=== PATIENT | male | born 1970 | race Caucasian/White ===

== ENCOUNTER 2025-05-13 13:26 | Inpatient (IN) | payer OTHER, SELFPAY ==
[2025-05-13] VITALS (38 sets, daily range): BP systolic 91–130; BP diastolic 42–87; PULSE 65; BMI 33.4; BMI 31.6
[2025-05-13] MEDS: SUBLIMAZE 100 MCG IV ×2 (11:18→11:33)
--- NOTE | 2025-05-13 11:18 | EDRN ---
100 mcg fentanyl IV push given at 111[address] per verbal order from Dr[address] Mott. Called pharmacy for fentanyl gtt at 1116.
[2025-05-13 11:25] LABS: Glucose - Point of Care 118 mg/dl (70-99)
[2025-05-13] MEDS: ATROPINE 0.1 MG/ML SYRINGE 0.5 MG IV (11:42)
[2025-05-13] MEDS: DILAUDID 1 MG IV (11:43)
--- NOTE | 2025-05-13 11:52 | CON.CAR ---
Consultation
Consultation Request
Date/Time Consultation Requested: 05/13/2025
Date/Time Consultation Performed: 05/13/2025
Requesting Provider: Dr. Mott
Performing Provider: Dr. Milian
Reason for Consultation: Syncope
Medical History
-
Chief Complaint: Syncope
History of Present Illness:
54-year-old male (known to Dr. Matamoros, His primary Industrial Hygiene Engineer) with paroxysmal atrial fibrillation (on Eliquis), hypertension, chronic continued cigarette use, end-stage renal disease on HD admitted with bradycardia with heart rates in the 30s;
patient had loss of consciousness at home while sitting in the chair (witnessed by ). EMS was called. Patient is currently obtunded and coming in and out of lucidness. He had some dyspnea at home, but denies any chest pain. He was recently
hospitalized a couple of weeks ago at [facility] and underwent foot surgery for osteomyelitis. The family also mentions that he currently has endocarditis, but is being managed with antibiotics only for now; he was told to follow-up
with his primary Industrial Hygiene Engineer as an outpatient.
Past Medical History
Past Medical History: HTN, Hypercholesterolemia and Other (Endocarditis, osteomyelitis)
Past Surgical History: Other (Foot surgery for osteomyelitis, testicular torsion as an adolescent)
Social History
Tobacco: Smoker
Alcohol: Daily
Drug: Former User (Marijuana and cocaine as a teenager)
Personal: ( at bedside)
Living: With Family
Family History
Family History: Unable to Obtain (Acuity)
Allergies / Home Medications
Allergy/AdvReac Type Severity Reaction Status Date / Time
No Known Allergies Allergy Verified 05/13/25 11:17
�Medication �Instructions �Recorded �Confirmed �Type
apixaban 5 mg tablet (Eliquis) 5 mg PO BID 05/13/25 05/13/25 History
atenolol 25 mg tablet 25 mg PO DAILY 05/13/25 05/13/25 History
daptomycin 350 mg intravenous 1,250 mg IV Q24H 05/13/25 05/13/25 History
solution
furosemide 20 mg tablet (Lasix) 20 mg PO DAILY 05/13/25 05/13/25 History
potassium chloride 20 mEq 20 meq PO DAILY 05/13/25 05/13/25 History
tablet,extended release
sevelamer carbonate 800 mg tablet 2,400 mg PO AC 05/13/25 05/13/25 History
vitamin B complex-folic acid 0.4 1 tab PO DAILY 05/13/25 05/13/25 History
mg tablet (B Complex 1 (with folic
acid))
Review of Systems
-
Unable to obtain full review of systems at this time due to: Acuity
History Source: Family, Ambulance Crew and Physician (ER Attending (and nurse))
Physical Exam
Vital Signs
Pulse Resp BP Pulse Ox
34 18 92/49 98
05/13/25 11:45 05/13/25 11:45 05/13/25 11:45 05/13/25 11:45
Physical Exam
General: Other (Somnolent, ill-appearing; arousable at times)
HEENT: Anicteric
Respiratory: Rhonchi (Mild bibasilar)
Cardiac: S1/S2 and Regular Rhythm (Bradycardic)
Breast: N/A
GI: Soft
Rectal: Deferred by Provider
Musculoskeletal: Edema (1-2+ with bilateral erythema)
Skin: Warm
Neuro: Other (Somnolent/lethargic, but arousable at times)
Psych: Confused
Impression / Plan
-
54-year-old male (known to Dr. Matamoros, His primary Industrial Hygiene Engineer) with paroxysmal atrial fibrillation (on Eliquis), hypertension, end-stage renal disease on HD, chronic continued cigarette use, and obesity admitted with bradycardia with heart rates in
the 30s; patient had loss of consciousness at home while sitting in the chair (witnessed by ). EMS was called. Patient is currently obtunded and coming in and out of lucidness. He had some dyspnea at home, but denies any chest pain. He was
recently hospitalized a couple of weeks ago at [facility] and underwent foot surgery for osteomyelitis. The family also mentions that he currently has endocarditis, but is being managed with antibiotics only for now; he was told to
follow-up with his primary Industrial Hygiene Engineer as an outpatient.
Symptomatic bradycardia:
- Patient with junctional, then idioventricular rhythm at 20-30 bpm; had loss of consciousness at home.
- Patient is currently hypotensive; labs are pending.
- Case discussed with Interventional Cardiology; patient will undergo urgent temporary pacemaker implantation now.
- Hospitalist team updated on patient's situation; admit to ICU under their service.
- Given his below comorbidities/infections, will be a suboptimal candidate for a permanent device; a Micra could be considered, if deemed appropriate--will have EP Cardiology assess case.
PAF (on Eliquis):
- Patient has missed Eliquis the past 2 nights, but took it this morning.
- Discontinue atenolol; lunchroom monitor in ICU.
Endocarditis:
- Patient did not undergo surgery; is currently on antibiotics.
- Will obtain echocardiogram after temporary pacemaker insertion.
Hypotension:
- Patient is currently hypotensive, possibly septic.
- Recommend ID consultation.
ESRD/HD:
- Nephrology consultation; patient had dialysis yesterday.
Foot osteomyelitis:
- Management as per primary team.
Chronic continued cigarette use:
- Counseled on the importance of smoking cessation.
Data Reviewed
-
EKG: Tracing Personally Visualized and interpreted (Idioventricular rhythm at 34 bpm with RBBB.)
Labs: Other (Pending)
Critical Care Time (in minutes): 79
[2025-05-13 11:54] LABS: Hematocrit 33.2 % (39.0-52.0); Hemoglobin 10.7 g/dL (13.0-18.0); Mean Corp Hgb Conc. 32.2 g/dL (33.0-37.0); Mean Corpuscular Volume 94.1 fL (80.0-94.0); Nucleated Red Blood Cells % 0 % (-); Platelet Count 212 10^3/uL (130-400); Red Cell Dist. Width 15.9 % (11.5-14.5)
--- NOTE | 2025-05-13 12:05 | ED.GENMED ---
History of Present Illness
General
Chief Complaint: Heart Rate Problem
Time Seen by Provider: 05/13/25 11:17
History of Present Illness
History of Present Illness:
54-year-old male with complex medical history including A-fib on Eliquis and atenolol, diabetes status post right foot surgery at [facility] about 3 weeks ago presenting to the emergency department for concern of bradycardia. Per medics, patient
was sitting in a chair, became unresponsive. When medics arrived, heart rate was in the 30s and patient was hypotensive. They gave 1 dose of atropine and started transcutaneous pacing with capture. On arrival to the hospital, family notes complex
recent hospitalization at [facility]. Patient received antibiotics, complicated by nephrotoxicity now requiring hemodialysis. Patient gets hemodialysis Monday, had dialysis yesterday. He is currently on daptomycin by
right chest PICC line. Additionally, they noted new diagnosis of endocarditis which was discovered about a week ago, told to follow-up with his sr. pricing analyst at [facility]. He has not yet followed up with his sr. pricing analyst. Patient is a full
code. Denies any known history of bradycardia. No additional history obtained at this time
Phy Exam
Physical Exam
Physical Exam:
General: Pale
HEENT: protecting airway
Neck: appears supple
CV: Bradycardic, irregular rhythm
Resp: No accessory muscle use, no increased work of breathing, lungs clear to auscultation bilaterally. Right PICC line
Abd: No distention
Extremities: Bandaged right foot with boot in place, status post right foot surgery
Neuro: alert, no focal neurologic deficit
: deferred
Rectal: deferred
Psych: Normal affect
Skin: Intact
Course
Orders/Labs/Results
Orders:
Orders
05/13/25
Electrocardiogram (*1) Stat
Other Reason for Exam: CP
Comment: DONE
Electrocardiogram (*1) Stat
Reason for Study: Chest Pain
Comment: DONE
05/13/25 11:18
Fentanyl Citrate/Pf [Sublimaze] 100 mcg IV NOW STA
05/13/25 11:32
Complete Blood Count/With Diff Urgent
Comprehensive Metabolic Panel Urgent
Fentanyl Citrate/Pf [Sublimaze] 100 mcg IV NOW STA
05/13/25 11:36
HYDROmorphone [Dilaudid] 1 mg .ROUTE .STK-MED ONE
05/13/25 11:40
Atropine Sulfate [Atropine 0.1 mg/ml Syringe] 1 mg .ROUTE .STK-MED ONE
NORepinephrine 4 MG/250 ML [Levophed] 4 mg in 250 ml .ROUTE .STK-MED
05/13/25 11:42
Atropine Sulfate [Atropine 0.1 mg/ml Syringe] 0.5 mg IV NOW STA
05/13/25 11:43
DOPamine 400 MG/D5W 250 ML [DOPamine] 400 mg in 250 ml .ROUTE .STK-MED
HYDROmorphone [Dilaudid] 1 mg IV NOW STA
05/13/25 11:44
Atropine Sulfate [Atropine 0.1 mg/ml Syringe] 1 mg .ROUTE .STK-MED ONE
05/13/25 11:51
Echo 2D MMode Color/Doppler Stat
Reason for Study: Syncope, bradycardia, endocarditis
05/13/25 12:00
DOBUTamine 1,000 MG/D5W 250 ML [Dobutrex] 1,000 mg in 250 ml IV PER PROTOCOL
Continuous dose in mcg/kg/min:: 5
DOPamine 400 MG/D5W 250 ML [DOPamine] 400 mg in 250 ml IV PER PROTOCOL
Initial dose in mcg/kg/min, then titrate:: 5
Titrate to keep:: Heart Rate
Keep Heart Rate (bpm) greater than:: 50
Titrate by mcg/kg/min:: 1-2 mcg/kg/min
Frequency of titrations (minutes):: 15
Maximum dose in ICU in mcg/kg/min:: 20
Maximum dose in IMU in mcg/kg/min:: 10
Begin to taper infusion when:: Remained at goal for 4hrs
Taper by mcg/kg/min:: 1-2 mcg/kg/min
Frequency of taper (minutes) if patient maintains goal:: 30
Taper to off?: Yes
If infusion off & no longer maintaining goal:: Contact Provider
05/13/25 12:02
Lactic Acid Q4H
Comment: CANCEL 2nd LACTIC ACID IF 1st LACTIC ACID IS LESS THAN 2
Blood Culture Q30M
HANY Source: Blood/Venous
Specimen Description:
05/13/25 12:30
Blood Culture Q30M
HANY Source: Blood/Venous
Specimen Description:
05/13/25 16:00
Lactic Acid Q4H
Comment: CANCEL 2nd LACTIC ACID IF 1st LACTIC ACID IS LESS THAN 2
Abnormal Lab Results
05/13/25 05/13/25
11:23 11:32
RBC 3.53 L 10^6/uL
(4.70-6.10)
Hgb 10.7 L g/dL
(13.0-18.0)
Hct 33.2 L %
(39.0-52.0)
MCV 94.1 H fL
(80.0-94.0)
MCHC 32.2 L g/dL
(33.0-37.0)
RDW 15.9 H %
(11.5-14.5)
MPV 11.5 H fL
(7.4-10.4)
Absolute Monos (auto) 1.0 H 10^3/uL
(0.1-0.6)
Lymphocytes % 16.8 L %
(20.5-51.1)
Monocytes % 11.1 H %
(1.7-9.3)
Sodium 128 L mmol/L
(135-145)
Potassium 6.4 H* mmol/L
(3.5-5.1)
Chloride 94 L mmol/L
(98-107)
BUN 44 H mg/dl
(9-20)
Creatinine 6.9 H* mg/dL
(0.7-1.3)
Glucose 113 H mg/dl
(70-99)
Alkaline Phosphatase 259 H U/L
(38-126)
Albumin 3.3 L g/dl
(3.5-5.0)
POC Glucose 118 H mg/dl
(70-99)
05/13/25 11:32
05/13/25 11:32
Vital Signs
Initial and Last Documented VS:
Initial Vital Signs
Pulse Resp BP Pulse Ox
33 17 109/44 96
05/13/25 11:19 05/13/25 11:19 05/13/25 11:19 05/13/25 11:19
Last Documented Vital Signs
Pulse Resp BP Pulse Ox
34 18 92/49 98
05/13/25 11:45 05/13/25 11:45 05/13/25 11:45 05/13/25 12:07
MDM/Problems Addressed
MDM/Problems Addressed:
54-year-old male with history of A-fib, diabetes, ESRD on hemodialysis presenting for concern of symptomatic bradycardia. Vital signs on arrival significant for bradycardia and hypotension.
On exam, patient is pale and unwell in appearance, chronically ill. Patient arrives with family, recent complex and complicated hospital admission at [facility] after right foot surgery, now on IV antibiotics by PICC line for suspected
osteomyelitis. In addition, patient found to have endocarditis. On arrival to the hospital, patient taken off transcutaneous pacing and EKG shows bradycardia, without clear evidence of third-degree heart block. However, patient was found to be
unresponsive prior to arrival with concern for symptomatic bradycardia. Blood pressure initially stable, so with supportive measures including IV fluids started. Will consult with cardiology, however patient very uncomfortable with transvenous
pacing so holding for now.
12:00 - Cardiology at bedside soon after patient's arrival. Blood pressure did begin to drop, so did try to transcutaneous pace, however patient very uncomfortable, difficult to capture. In discussion with cardiology, pacing turned off and we will
proceed with blood pressure support with dopamine. Patient at this time is not a candidate for pacemaker given active endocarditis, which could lead to pacemaker infection. Recommendation at this time is temporary transvenous pacemaker. Patient
will go to [facility]. Hospitalist made aware
*Pulse Oximetry
SaO2: 98
Oxygen Mode of Delivery: Room air
Patient hypoxic: no
*EKG
Interpreted by ED Provider?: Yes
EKG Intrepretation Date: 05/13/25
EKG Intrepretation Time: 12:20
Interpretation: abnormal
Comparison EKG: no comparison EKG present
Heart Rate: 34
Rate: bradycardiac
Rhythm: other (idioventricular rhythm)
[place]ster: right axis deviation
QRS Pattern: right bundle branch block
Ischemia: non-specific ST changes
*Critical Care Note
Total Time (30-74mins, 75-104mins- exclusive of procedures): 60
comment:
The high probability of a clinically significant, sudden or life threatening deterioration of the cardiac system(s), symptomatic bradycardia, required my full and direct attention, intervention and personal management. The aggregate critical care
time was 60 minutes. This time is in addition to time spent performing reported procedures but includes the following:
[x] Data Review and interpretation
[x] Patient assessment and monitoring of vital signs
[x] Documentation
[x] Medication orders and management
ED Attending Note
-
Portions of this chart may have been created with voice recognition software.� Occasional wrong word or��sound alike� substitutions may have occurred due to the inherent limitations of voice recognition software.
Discharge Plan
Departure
Patient Disposition: Admit
Date of Disposition: 05/13/25
Time of Disposition: 12:03
Presentation/result/management discussed w/ accepting MD/DO: Hospitalist
Patient with high blood pressure during this ER visit?: No
Condition: Critical
Discharge Problem:
Symptomatic bradycardia, Endocarditis, Hypotension
Prescriptions:
No Action
atenolol 25 mg Tablet
25 mg PO DAILY
furosemide [Lasix] 20 mg Tablet
20 mg PO DAILY
sevelamer carbonate 800 mg Tablet
2,400 mg PO AC
Eliquis 5 mg Tablet
5 mg PO BID
potassium chloride 20 mEq Tablet Extended Release
20 meq PO DAILY
daptomycin 350 mg Recon Soln
1,250 mg IV Q24H
Rx Instructions:
for 25 days starting 05/07/25
vitamin B complex-folic acid [B Complex 1 (with folic acid)] 0.4 mg Tablet
1 tab PO DAILY
Interventions
Interventions:
*Neglect/Abuse Screening Last Done: 05/13/25 11:30
Discharge Date and Time
Print Language: CHINESE
[2025-05-13 12:22] LABS: ALT (SGPT) 32 U/L (0-50); AST (SGOT) 31 U/L (17-59); Albumin 3.3 g/dl (3.5-5.0); Alkaline Phosphatase 259 U/L (38-126); Blood Urea Nitrogen 44 mg/dl (9-20); Calcium 8.4 mg/dl (8.4-10.2); Carbon Dioxide 24 mmol/L (22-30); Chloride 94 mmol/L (98-107); Estimated Creatinine Clearance 17 ml/min; Glucose 113 mg/dl (70-99); Potassium 6.4 mmol/L (3.5-5.1); Sodium 128 mmol/L (135-145); Total Protein 7.6 g/dl (6.3-8.2); eGFR 8.75
--- NOTE | 2025-05-13 12:38 | CON.INTV ---
Consultation
Consultation Request
Date/Time Consultation Requested: 05/13/2025
Date/Time Consultation Performed: 05/13/2024
Medical History
-
Chief Complaint: Loss of consciousness
History of Present Illness:
54-year-old male with PMH of paroxysmal atrial fibrillation on Eliquis, COPD, NAHUM is being admitted to the CV ICU for management of sinus bradycardia secondary to complete heart block s/p temporary Venous pacemaker implantation.
He was presented to ED today by EMS for sinus bradycardia. He felt lightheaded, had SOB while sitting on the chair and suddenly lost his consciousness. His called EMS and when they arrived his HR was 30s, hypotensive and received a dose of
atropine. He was started transcutaneous pacing with capture.
Recently he was hospitalized at [facility] on 04/17/2025 for right 3rd toe osteomyelitis. He was started on Piperacillin and Vancomycin. He developed broad skin allergic reaction secondary to piperacillin. Additionally his hospital
course was complicated by nephrotoxicity 2/2 vancomycin. Renal biopsy showed infectious glomerulonephritis. Since then he was on hemodialysis Mon/mon/Mon. At the hospital his blood culture was positive for ? infection and he had echo showing 7 mm
aortic valve vegetation with mild aortic insufficiency. He was diagnosed with endocarditis and PICC line was placed on the right arm for treatment with daptomycin and linezolid. Linezolid was discontinued recently and he is on daptomycin to be
continued for 42 days last day of antibiotics June 01, 2025.
At the ED he was hypotensive, heart rate 30's. Cardiology is on board. He had successful placement of a temporary venous pacemaker from the right internal jugular vein.
At the bedside he is complaining about feeling tired heart. His vitals HR 60, BP 117/61, 4L NC 94% O2. Dopamine drip as needed. He has normal bms. He urinates very little.
Past Medical History
Past Medical History: Arrhythmias, COPD and Other (Obstructive sleep apnea)
Past Surgical History: Other (Testis torsion when he was a teenager)
Social History
Tobacco: Former Smoker (Quit 04/17/2025)
Alcohol: Daily (2-3 beers a day)
Drug: Former User (Marijuana and cocaine as a teenager)
Personal:
Living: With Family
Family History
Family History: CAD (Father of heart disease early 70s)
Allergies / Home Medications
Allergies
Allergy/AdvReac Type Severity Reaction Status Date / Time
No Known Allergies Allergy Verified 05/13/25 11:17
Home Medications
�Medication �Instructions �Recorded �Confirmed �Last Taken �Type
apixaban 5 mg tablet (Eliquis) 5 mg PO BID 05/13/25 05/13/25 05/13/25 History
atenolol 25 mg tablet 25 mg PO DAILY 05/13/25 05/13/25 Unknown History
daptomycin 350 mg intravenous 1,250 mg IV Q24H 05/13/25 05/13/25 05/12/25 History
solution
furosemide 20 mg tablet (Lasix) 20 mg PO DAILY 05/13/25 05/13/25 Unknown History
potassium chloride 20 mEq 20 meq PO DAILY 05/13/25 05/13/25 Unknown History
tablet,extended release
sevelamer carbonate 800 mg tablet 2,400 mg PO AC 05/13/25 05/13/25 Unknown History
vitamin B complex-folic acid 0.4 1 tab PO DAILY 05/13/25 05/13/25 Unknown History
mg tablet (B Complex 1 (with folic
acid))
Review of Systems
-
History Source: Patient
Constitutional: Fatigue
EENT: No Symptoms
Respiratory: No Symptoms
Cardiac: No Symptoms
Abdomen/GI: No Symptoms
: No Symptoms
Musculoskeletal: No Symptoms
Skin: Rash (Bilateral lower legs, erythema and bluish discoloration)
Neuro: No Symptoms
Endocrine: No Symptoms
Vitals / Labs / Diagnostic Testing
Vital Signs
Pulse Resp BP Pulse Ox
34 18 92/49 98
05/13/25 11:45 05/13/25 11:45 05/13/25 11:45 05/13/25 12:07
Lab Data
05/13/25 11:32
Diagnostic Testing:
Physical Exam
-
HEENT: Normocephalic
Cardiovascular: S1/S2, Regular Rhythm and Other (Temporary pacemaker)
Respiratory: Clear
GI: Soft, Non Distended and Non Tender
Neurology: AO x 3 and No Motor Deficits
Skin: Warm and Dry
General: Comfortable
Assessment
-
Impression
54-year-old male with PMH of paroxysmal atrial fibrillation on Eliquis, COPD, NAHUM is being admitted to the CV ICU for management of sinus bradycardia secondary to complete heart block s/p temporary Venous pacemaker implantation.
Recently he was hospitalized at [facility] on 04/17/2025 for right 3rd toe osteomyelitis. He developed broad skin allergic reaction secondary to piperacillin. Additionally his hospital course was complicated by nephrotoxicity 2/2
vancomycin. Renal biopsy showed infectious glomerulonephritis. Since then he was on hemodialysis Mon/mon/Mon. He was diagnosed with endocarditis and PICC line was placed on the right arm for treatment with daptomycin and linezolid. He is on
daptomycin to be continued for 42 days last day of antibiotics June 01, 2025.
Plan
Symptomatic bradycardia 2/2 complete heart block
- Loss of consciousness at home, HR 30s
- Cardiology on board
- EKG : junctional then idioventricular rhythm at 20 to 30 bpm
- On 05/13/2025 s/p temporary venous pacemaker
- Dopamine ggt prn
- dc atenolol
- check tsh, bmp
Paroxysmal atrial fibrillation
- hold Eliquis for possible cardiac surgery
- Xarelto was switched to Eliquis due to SANDY
- Last dose of Eliquis was this morning
Endocarditis
- linezolid was discontinued, continue daptomycin
- Hold on permanent pacemaker placement due to risk of pacemaker infection
- Obtain echo
- blood cx - pending
- ID on board, input appreciated
Hypotension
- Hold atenolol, furosemide
- Monitor BP
Hyperkalemia
- He has been taking 20 mg potassium supplement daily
- K 6.4
- He was given insulin regular 5 U, IV calcium gluconate, dextrose 50%water, Lokelma
- Follow BMP
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
- Recent renal biopsy, infectious glomerulonephritis
- Hemodialysis Mon/mon/Mon, last one 05/12/2025
- Nephrology on board
- 48oz fluid restriction, K and Na restriction on HD
- d/c lasix
Foot osteomyelitis
- Continue antibiotics
- Wound consult
Obstructive sleep apnea
- Uses CPAP at night
COPD
- Quit smoking since last hospitalization
- Continue home inhalers
Alcohol use disorder
- 2-3 beers daily
Full code
DVT prophylaxis: SQ heparin (Hold Eliquis)
--- NOTE | 2025-05-13 12:42 | HPS.HSE ---
Family Physician
-
Family Physician:
Chief Complaint
-
syncope
History of Present Illness
54-year-old male past medical history of paroxysmal atrial fibrillation previously on Xarelto switched to Eliquis, COPD, presenting with unresponsive episode and gasping shortly prior to arrival. When EMS arrived he was noted to be bradycardic in
the 30s and was shocked by EMS. He was being paced by medics.
He was recently hospitalized at [facility] and discharged within the past week. He was originally admitted after he presented from a podiatry office for infection of his right toe which was treated with multiple antibiotics. He
underwent debridement of his toe with podiatry. He was started on vancomycin and developed acute kidney injury requiring dialysis, which he receives Monday, Monday, Monday. He underwent renal biopsy which showed infectious glomerulonephritis
thought to be secondary to vancomycin. He was treated with cellulitis and underwent skin biopsy of skin lesions which was unrevealing. He had echocardiogram which showed 7 mm aortic valve vegetation with mild aortic insufficiency. His blood
cultures were negative. He was seen by cardiology and there was concern for endocarditis. MRI brain did not show any septic emboli. He was treated with daptomycin and linezolid to be continued for 42 days total. He will complete antibiotics on
June 01, 2025.
Due to worsening kidney function is Xarelto switched to Eliquis and digoxin was held. Atenolol was decreased to 25 mg. Outpatient follow-up with his carpenter bridge Dr. Bird was recommended.
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 Outpatient follow-up with vascular was recommended.
Outpatient follow-up with podiatry was recommended.
After his recent discharge he had been afebrile but had been fatigued. He currently denies any symptoms such as chest pain shortness of breath or dizziness although he feels tired. No fever vomiting or diarrhea.
Used to use drugs when he was younger. Recently quit alcohol and smoking after recent admission.
Medical History
Past Medical History
Past Medical History: Reports Other (paroxysmal atrial fibrillation previously on Xarelto switched to Eliquis, COPD,)
Past Surgical History: Reports None
Social History
Tobacco: Former Smoker
Alcohol: Occasional
Drug: None
Family History
Family History: Not pertinent
Allergies / Home Medications
Allergies reflects when Allergies were last updated in [facility].
Home Medications with original date entered in [facility]
Allergy/Medication List:
Allergies
Allergy/AdvReac Type Severity Reaction Status Date / Time
No Known Allergies Allergy Verified 05/13/25 11:17
Home Medications
apixaban 5 mg tablet (Eliquis) 5 mg PO BID 05/13/25
atenolol 25 mg tablet 25 mg PO DAILY 05/13/25
daptomycin 350 mg intravenous solution 1,250 mg IV Q24H 05/13/25
furosemide 20 mg tablet (Lasix) 20 mg PO DAILY 05/13/25
potassium chloride 20 mEq tablet,extended release 20 meq PO DAILY 05/13/25
sevelamer carbonate 800 mg tablet 2,400 mg PO AC 05/13/25
vitamin B complex-folic acid 0.4 mg tablet (B Complex 1 (with folic acid)) 1 tab PO DAILY 05/13/25
Review of Systems
-
History Source: Patient
A 12 point ROS was completed and negative except as noted: Yes
Constitutional: Reports No Symptoms
EENT: Reports No Symptoms
Respiratory: Reports No Symptoms
Cardiac: Reports No Symptoms
Abdomen/GI: Reports No Symptoms
: Reports No Symptoms
Musculoskeletal: Reports No Symptoms
Skin: Reports No Symptoms
Neurological: Reports No Symptoms
Endocrine: Reports No Symptoms
Hematologic/Lymphatic: Reports No Symptoms
Psych: Reports No Symptoms
Physical Exam
Vital Signs
Vital Signs
Pulse Resp BP Pulse Ox
34 18 92/49 98
05/13/25 11:45 05/13/25 11:45 05/13/25 11:45 05/13/25 12:07
Physical Exam
General: Well Developed, Well Nourished and No Apparent Distress
HEENT: NormoCephalic, Moist mucous membranes and Atraumatic
Respiratory: Clear
Cardiac: S1/S2 and Regular Rhythm; No Murmur or Rub
GI: Soft, Non Tender, Non Distended and Normal Bowel Sounds; No Organomegaly
Rectal: Deferred by Provider
Musculoskeletal: No Clubbing, No Cyanosis and No Edema
Skin: No Rash
Neuro: Nonfocal/grossly intact
Laboratory Results
-
05/13/25 11:32
Laboratory Results
Lactic Acid 2.2 mmol/L (0.7-2.0) H 05/13/25 12:02
Total Bilirubin 1.2 mg/dl (0.2-1.3) 05/13/25 11:32
AST 31 U/L (17-59) 05/13/25 11:32
ALT 32 U/L (0-50) 05/13/25 11:32
Alkaline Phosphatase 259 U/L (38-126) H 05/13/25 11:32
Data Reviewed
-
Lab Data: Labs Reviewed by me
Old Records: Reviewed
Impression/Plan
-
IMPRESSION:
PLAN:
# Syncopal episode concerning for unstable symptomatic bradycardia/heart block secondary to ongoing endocarditis
-Blood pressure 90s, heart rate 30s currently
- EKG shows junctional bradycardia, second shows idioventricular rhythm, right bundle branch block,
- Patient to undergo temporary pacemaker placement with echocardiogram in [facility]
-Atropine given here
-Patient on dopamine drip
- Temporary pacemaker to be placed now, echocardiogram in [facility]
- Check blood cultures
-Continue linezolid, daptomycin until 06/01
-Hold atenolol, Lasix
- Cardiology following
- ID consulteded
# Possible sepsis (hypotension, lactic acidosis) secondary to endocarditis
# Recently noted aortic valve vegetation
- Blood cultures pending
-Lactate 2.2
- Check lactate
# Hyperkalemia secondary to SANDY/potassium supplement
- Insulin dextrose
- Calcium gluconate
-Hold potassium
- Recheck BMP in 4 hours
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
- Dialysis dependent, received dialysis yesterday
- Due for dialysis tomorrow
-Hold Lasix
-Continue sevelamer
- Nephrology consulted
Recent right foot osteomyelitis s/p debridement
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
Paroxysmal atrial fibrillation
- Hold Eliquis
COPD
- Continue Anoro Ellipta
Chronic anemia
- Hemoglobin 10.7
Recent smoker
Hx of testicular torsion s/p surgery
Full code
DVT prophylaxis�heparin
N.p.o.
--- NOTE | 2025-05-13 13:12 | PTCARENOTE ---
Received report from Efe RN at 1312, patient transferred directly into room 2263 via hospital bed accompanied by RN. Nursing assessment completed and as documented. Patient s/p transvenous temporary pacemaker via R IJ, confirmed settings at this
time - see worklist, V paced on monitor in 60's. Labs drawn and medications given as per order, see JUL. R IJ cordis present with KVO infusing at 10ml/hr, dressing CDI. Patient with dopamine infusing via L FA PIV for HR - see worklist for charting.
RUE PICC line present from previous hospital, VAT notified at this time, +BR. Right chest wall HD cath present. Patient with wounds to BLLE and B/L feet - WOC consulted and at bedside, orders placed for wound care. Scabbed over rash noted to BLLE,
BLUE, and back side - see worklist. ECHO done at bedside. Nephrology at bedside, x1 dose lokelma ordered and HD ordered for today. Safety Sealer at bedside with residents, additional labs and CXR ordered. Patient given ice chips and tolerated well,
repositioned for comfort, VSS, call velázquez within reach, care ongoing. All questions answered for patient and family at bedside.
--- NOTE | 2025-05-13 13:15 | ITS.CL.PN ---
[employer] - Procedure Note
Procedure
Procedure Note:
CARDIAC CATHETERIZATION REPORT
Date of Procedure: 05/13/2025
Referring: Dr. Sen Milian MD
Indication: bradycardia secondary to complete heart block, hypotension
PROCEDURE: temporary venous pacemaker insertion
ACCESS: 6F right internal jugular vein
CATHETERS: 6F pacing wire
MODERATE SEDATION: 25 minutes of moderate sedation was utilized. An independent medical care administrator was present to assist with and help manage the patient's level of consciousness and physiologic status.
PROCEDURE DESCRIPTION: Ultrasound-guided vascular access was obtained in the right internal jugular vein and a 6 Kiswahili sheath placed. Under fluoroscopic guidance, a 6 Kiswahili pacing wire was advanced to the RV apical septum with location confirmed
on YUAN projection. Pacing was initiated with capture threshold down to 1 mA. The pacemaker was set to an output of 10 mA and rate of 60 bpm and secured in place with suture and Tegaderm. Patient tolerated the procedure well and was taken to the
CVICU. Of note, the patient's potassium resulted at 6.4 immediately prior to the procedure so 1 g of calcium gluconate was given.
CONCLUSION: Successful placement of a temporary venous pacemaker from the right internal jugular vein.
Signed: Omero Parra MD, PhD
[2025-05-13 13:43] LABS: Glucose - Point of Care 117 mg/dl (70-99)
[2025-05-13] MEDS: DOBUTREX 250 IV (14:15)
[2025-05-13 14:18] LABS: Blood Urea Nitrogen 47 mg/dl (9-20); Calcium 8.5 mg/dl (8.4-10.2); Carbon Dioxide 24 mmol/L (22-30); Chloride 96 mmol/L (98-107); Estimated Creatinine Clearance 17 ml/min; Glucose 121 mg/dl (70-99); Potassium 6.6 mmol/L (3.5-5.1); Sodium 128 mmol/L (135-145); eGFR 8.75
[2025-05-13] MEDS: DEXTROSE 50% SYRINGE 25 GRAMS IV (14:20)
[2025-05-13] MEDS: NOVOLIN R 5 UNITS IV (14:20)
--- NOTE | 2025-05-13 15:12 | W.CON.NEPH ---
Consultation
-
Date/Time Consultation Requested: 05/13/2025 2 PM
Date/Time Consultation Performed: 05/13/2025 3 PM
Requesting Provider: Dr. Alvarado
Performing Provider: Dr. Wheat
Reason for Consultation: SANDY/HD
Medical History
-
Chief Complaint: Bradycardia
History of Present Illness:
This is a 54-year-old gentleman who has atrial fibrillation long-term previously treated with Xarelto and atenolol. He also has COPD due to longstanding smoking but does not require inhaler therapy. He was at [facility] about 3 weeks
ago for infection of his right third toe. He says that they managed to save the toe but in treating the infection with vancomycin he had developed a reaction with diffuse hives. He then developed kidney failure. He underwent kidney biopsy which
was reported as glomerular and tubular damage from vancomycin and infectious glomerulonephritis. He was started on dialysis via a right tunneled IJ catheter. He received 2 treatments in the hospital and was discharged to [facility]
[place] for outpatient dialysis. He was there on Monday and Monday. He says that his dialysis sessions were without incident. He was receiving daptomycin at home postdialysis. He tried to go to work today but developed an
unresponsive episode. EMS found him bradycardic in the 30s. He was brought to emergency room. A temporary pacemaker was placed today.
Evaluation at [place] also discovered a aortic valve vegetations 7 mm on echocardiogram. Blood cultures were negative however.
Past Medical History
Atrial fibrillation
Hypertension
Acute kidney injury needing dialysis
Right third toe surgery
COPD
Social History
Tobacco: Former Smoker
Alcohol: None
Family History
Family History: Not Pertinent
Allergies / Home Medications
Allergy/AdvReac Type Severity Reaction Status Date / Time
No Known Allergies Allergy Verified 05/13/25 11:17
�Medication �Instructions �Recorded �Confirmed �Type
apixaban 5 mg tablet (Eliquis) 5 mg PO BID Blood Clot 05/13/25 05/13/25 History
Prevention/Tx
atenolol 25 mg tablet 25 mg PO DAILY Blood Pressure 05/13/25 05/13/25 History
daptomycin 350 mg intravenous 1,250 mg IV Q24H Infection 05/13/25 05/13/25 History
solution
furosemide 20 mg tablet (Lasix) 20 mg PO DAILY Fluid 05/13/25 05/13/25 History
Retention/Swelling
potassium chloride 20 mEq 20 meq PO DAILY Electrolyte 05/13/25 05/13/25 History
tablet,extended release Repletion
sevelamer carbonate 800 mg tablet 2,400 mg PO AC Kidney Disease 05/13/25 05/13/25 History
vitamin B complex-folic acid 0.4 1 tab PO DAILY Supplement 05/13/25 05/13/25 History
mg tablet (B Complex 1 (with folic
acid))
Review of Systems
-
Malaise
No chest pain or shortness of breath
All other systems: Negative unless noted
Physical Exam
Vital Signs
Vital Signs
Pulse Resp BP Pulse Ox
90 23 110/52 100
05/13/25 14:45 05/13/25 14:45 05/13/25 14:30 05/13/25 14:45
Lab Results
WBC 8.7 10^3/uL (4.8-10.8) 05/13/25 11:32
RBC 3.53 10^6/uL (4.70-6.10) L 05/13/25 11:32
Hgb 10.7 g/dL (13.0-18.0) L 05/13/25 11:32
Hct 33.2 % (39.0-52.0) L 05/13/25 11:32
Plt Count 212 10^3/uL (130-400) 05/13/25 11:32
eGFR 8.75 05/13/25 13:49
Albumin 3.3 g/dl (3.5-5.0) L 05/13/25 11:32
Physical Exam
Patient is awake alert oriented and in no distress. Mood and affect were pleasant, insight and judgment were good. Pupils are equal round and reactive to light, extraocular movements are intact, sclera were anicteric. Hearing was normal, ears and
nose are intact. Oropharynx was clear. Neck was supple with trachea midline and no thyromegaly. Heart was regular rate and rhythm without rubs. Lower extremities without edema. Lungs were clear to auscultation bilaterally and with normal
excursion. Abdomen was soft, nontender, with normal active bowel sounds, and no hepatosplenomegaly. Skin was without rash and with normal turgor.
Data Reviewed
-
Medical Tests (Nuc Med, Echo etc): Image Personally Visualized and interpreted (EKG 05/13/2025 by my reading idioventricular rhythm)
Labs: Labs Reviewed by me
Old Records: Requested
Assessment/Plan
-
Assessment
Aortic valve vegetation
Bradycardia status post pacemaker
SANDY on dialysis
Postinfectious glomerulonephritis
Hyperkalemia
Hyponatremia
Anemia
Plan
short dialysis treatment today
Lokelma course
Regular dialysis tomorrow
Discontinue dopamine
Continue daptomycin
Obtain records from [facility]
Discussed with patient and
[2025-05-13] MEDS: LOKELMA 10 GRAM PO ×2 (15:24→19:01)
[2025-05-13 15:40] LABS: Glucose - Point of Care 120 mg/dl (70-99)
[2025-05-13 15:54] LABS: APTT 41.0 Sec (23.4-35.0); INR 2.30; PT 25.5 Sec (11.4-14.6)
[2025-05-13 16:29] LABS: Glucose - Point of Care 96 mg/dl (70-99)
--- NOTE | 2025-05-13 16:30 | WOUNDNOTE ---
POSTERIOR LEGS AND HEELS
--- NOTE | 2025-05-13 16:31 | WOUNDNOTE ---
L 2ND TOE
--- NOTE | 2025-05-13 16:32 | WOUNDNOTE ---
R 3RD TOE DORSAL
--- NOTE | 2025-05-13 16:33 | WOUNDNOTE ---
R 3RD TOE WEB
--- NOTE | 2025-05-13 16:40 | CM ---
spoke to pt in room, he is prev recovering from a recent hospitalization at [facility] for R-foot osteomyelitis- he went home on IV antibx- Daptomycin/[facility] and a boot on the right foot. He had SANDY from [facility] and is now req
RADHA- Matt/Katie garcia- MWF @ 530 am. , his drives him. He lives with his in a 2 story home with 1 step to enter. he has a walker at home he uses and a cane if needed. plan is to return to prev services when medically stable. cm to f/u
with HD and Infusion co tomorrow for dc planning needs.
--- NOTE | 2025-05-13 16:43 | WOUNDNOTE ---
WON RN note: Patient admitted with symptomatic bradycardia.
See H&P for complete history.
PMH: 54-year-old male past medical history of paroxysmal atrial fibrillation previously on Xarelto switched to Eliquis, COPD, presenting with unresponsive episode and gasping shortly prior to arrival. When EMS arrived he was noted to be bradycardic
in the 30s and was shocked by EMS. He was being paced by medics.
He was recently hospitalized at [facility] and discharged within the past week. He was originally admitted after he presented from a podiatry office for infection of his right toe which was treated with multiple antibiotics. He
underwent debridement of his toe with podiatry. He was started on vancomycin and developed acute kidney injury requiring dialysis, which he receives Monday, Monday, Monday.
Wound Location and type/assessment: Patient admitted with: Healed surgical site to R 3rd toe, dry eschar intact, no drainage. R plantar foot with healing ulcer from infection, reports Dora at bedside. Showed this technical publications writer pictures of R plantar
foot when it started and is much improved. Reviewed current treatment of R foot with as ordered by Range Examiner Dr. Hardy. Using Darco shoe to R foot. Patient reports he was at Podiatrists office yesterday and had stitches removed, follow up is
in 2 wks. Legs with residual scabs, swelling and redness from reported Vanco reaction, no drainage. Heels are intact. L 2nd toe with curled in toe nail, dark brown, no drainage. Will have Range Examiner look at it at next visit reports . Gluteal
cleft with mild MASD, sacrum intact. Resolving rash on buttocks.
Appetite: NPO.
Pressure redistribution devices in place: On air mattress, turns self, can be on Accumax. Ad norman with Darco shoe.
Plan: Betadine and dry dressing applied to R foot wounds. Mineral oil and miconazole ordered.
Will confirm orders with hospitalist. Updated nurse Avtar who will finish wrapping dressing after I&D assess,
Updated care plan and will follow as needed.
Note to case management of equipment requested for discharge: TBD
Recommend follow up with Range Examiner.
[2025-05-13 16:55] LABS: TSH 6.13 uIU/ml (0.47-4.68)
[2025-05-13] MEDS: RENVELA PO (17:14)
--- NOTE | 2025-05-13 17:22 | CON.ID ---
Consultation
-
Date/Time Consultation Requested: May 13, 2025 1329
Date/Time Consultation Performed: May 13, 2025 1725
Requesting Provider: Dr. Mykel Toribio
Performing Provider: Dr. Madelyn Lou
Reason for Consultation: Endocarditis on daptomycin, SANDY
Chief Complaint / Past History
Chief Complaint
Loss of consciousness
History of Present Illness
History obtained from the patient as well as from his at bedside. 54-year-old male with history of hypertension, COPD, paroxysmal atrial fibrillation, recent complicated hospital stay at [place] (see below) who presented to the hospital
today due to abrupt loss of consciousness. Per , patient was watching TV when he suddenly became unresponsive and very rigid. He would regain consciousness and again became unresponsive and tense. This happened about 3 times. In the ER
patient noted to be in complete AV block with pulse in the 30s. He underwent emergent venous temporary pacer placement. TTE showed abnormal aortic valve with moderate aortic regurgitation. He is now alert and oriented x 3. No recent fevers or
chills. No diarrhea. No cough. No chest pain.
Of note the patient with chronic callus at the bottom of his right foot for which he follows with podiatry. He underwent several callus debridement. The wound extended to right third toe web. The right third toe then turned white. He was placed
on several courses of antibiotics including cephalexin then amoxicillin which he tolerated. The toe and callus wounds were healing. Then on April 18, the right third toe abruptly turned dark blue/purplish in color. He was admitted to [facility] April 19. Imaging showed osteomyelitis. On April 21 around 3 PM, he was taken to the OR status post right third toe partial bone resection. Postop he was started on vancomycin and Zosyn. The next day he develop
vasculitic rash initially on his thigh then spread all over his body. Few of them turned blisterlike. ANCA negative. Skin biopsy reportedly negative. Patient also noted to have rising creatinine. Both the vancomycin and Zosyn were discontinued.
Renal biopsy showed 'infectious glomerulonephritis'. Patient became dialysis dependent. Infectious disease ordered TTE to look for possible endocarditis with emboli to the kidneys. TTE showed 7 mm aortic valve vegetation with mild aortic
insufficiency. Per patient note BRENDAN was performed. Blood cultures were negative. Bartonella and Coxiella serologies negative. The toe culture grew Corynebacterium. Infectious placed him on IV daptomycin to complete 6-week course through May
2024. Prior to discharge patient was started on oral linezolid, he was discharged to home May 08. While at home he developed itching and hives. His called infectious disease who recommended discontinue the linezolid and the rash
resolved.
Past History
Additional Past Medical History:
COPD
Hypertension
R 3rd toe osteomyelitis status post partial bone resection at [place] 04/21/25, cx Corynebacterium. On Daptomycin till 06/01/24
AV vegetation by TTE,, neg blood cx's at [place], on daptomycin till 06/01/24
SANDY-> ESRD on HD since 03/2025 at [place]. Renal bx 'infectious glomerulonephritis'. Possibly due to Vancomycin.
Paroxysmal atrial fibrillation
Dyslipidemia
Venous insufficiency
Sleep apnea
Testicular torsion repair as a teenager
Allergy History:
No Known Allergies Allergy (Verified 05/13/25 11:17)
Medications Reviewed: Yes
Current Antibiotics:
Daptomycin
Social History
Tobacco: Smoker (Quit 04/19/25)
Alcohol: Daily
Drug: None
Personal:
Living: With Family
Family History
Family History: Not Pertinent
Review of Systems
Review of Systems
General: Negative Fever, Chills or Change in Appetite
HEENT: Negative Stiff Neck, Sinus Problems, Headache or Pharyngitis
Cardiovascular: Negative Chest Pain or Dyspnea
Respiratory: Negative Dyspnea or Cough
Gasteroenterology: Negative Nausea, Vomiting or Diarrhea
Genital / Urological: Negative Dysuria or Flank Pain
Endocrine: Weakness
Neurological: Negative Dizziness
All systems: All other systems were reviewed and were negative
Vital Signs
Temp Pulse Resp BP Pulse Ox
97.8 F 60 18 118/73 93
05/13/25 15:48 05/13/25 17:15 05/13/25 17:15 05/13/25 17:15 05/13/25 17:00
Physical Exam
Physical Exam
Constitutional: No Acute Distress, Comfortable and Non-toxic
Head: Other (No sinsus tenderness)
Eyes: No Conjunctival Hemorrhage and Sclera Anicteric
Cardiovascular: Regular Rate and S1/S2
Pulmonary: Clear
Gastrointestinal: Soft, Non Tender, Non Distended and Normal Bowel Sounds
Genito-Urinary: Negative CVA Tenderness
Extremities: Venous Insufficiency (BLE); Negative Edema
Skin: Dry (Extremely dry hyperkeratosis of bilateral feet to moulton)
Wound: Other (Right foot plantar 3rd metatarsal callus with small cental wound clean pink granulation tissue; R 3rd toe with iodine painted, without deep wound)
Neurological: AO x 3
Lines: HD Cath (RCW no erythema)
Lab / Diagnostic Study Results
05/13/25 11:32
05/13/25 20:00
Abs Immat Gran (auto) 0.0 10^3/uL (0-0.05) 05/13/25 11:32
Absolute Neuts (auto) 6.1 10^3/uL (1.4-6.5) 05/13/25 11:32
Absolute Lymphs (auto) 1.5 10^3/uL (1.2-3.4) 05/13/25 11:32
Absolute Monos (auto) 1.0 10^3/uL (0.1-0.6) H 05/13/25 11:32
Absolute Basos (auto) 0.1 10^3/uL (0-0.2) 05/13/25 11:32
Immature Gran % 0.5 % (0-0.5) 05/13/25 11:32
Neutrophils % 69.7 % (42.2-75.2) 05/13/25 11:32
Lymphocytes % 16.8 % (20.5-51.1) L 05/13/25 11:32
Monocytes % 11.1 % (1.7-9.3) H 05/13/25 11:32
Eosinophils % 1.3 % (0-6) 05/13/25 11:32
Basophils % 0.6 % (0-2) 05/13/25 11:32
PT 25.5 Sec (11.4-14.6) H 05/13/25 15:33
PT Cancelled 05/13/25 15:33
INR 2.30 05/13/25 15:33
INR Cancelled 05/13/25 15:33
Lactic Acid Cancelled 05/13/25 19:29
Microbiology Results
Micro:
05/13/25 12:11 Blood Culture - Pending
Blood/Venous
05/13/25 12:02 Blood Culture - Pending
Blood/Venous
Assessment / Plan
# Complete AVB/bradycardia s/p temporary venous pacer placement 05/13/25
# Recent AV vegetation by TTE with mild AI neg blood cx's at [place], on daptomycin till 06/01/24
TTE here moderate aortic regurgitation
# Recent R 3rd toe osteomyelitis status post partial bone resection at [place] 04/21/25, cx Corynebacterium. On Daptomycin till 06/01/24
# SANDY-> ESRD on HD since 03/2025 at [place]. Renal bx 'infectious glomerulonephritis'.
Possibly due to Vancomycin +/- Zosyn vs embolic
#Hyperkalemia - requiring emergent HD today
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
- Follow blood cx's
- Recommend BRENDAN to confirm AV vegetation, valve function
- Continue Daptomycin 1250 mg q48 till 06/01/24.
Will give supplement dose after emergent HD today.
Check CK in am while on daptomycin.
# Other PMHX
COPD
Hypertension
Paroxysmal atrial fibrillation
Dyslipidemia
Superior mesenteric artery stenosis
Venous insufficiency
Sleep apnea
Testicular torsion repair as a teenager
--- NOTE | 2025-05-13 17:39 | W.PN.NEPH.HD ---
Assessment
-
Pt seen on HD. no complaints. VSS, access ok
Progress Note - Hemodialysis
-
Date of Service: May 13, 2025
Duration: 2 hours
Potassium Bath: 2
Calcium Bath: 2.5
Opti-Dialyzer: 160
Ultrafiltration: Other (1kg)
Blood Flow: 400
Dialysate Flow: 600
Heparin: 0
EPO: 0
[2025-05-13] MEDS: HEPARIN 4300 UNITS INTRACATH (18:29)
[2025-05-13 18:34] LABS: Glucose - Point of Care 88 mg/dl (70-99)
[2025-05-13] MEDS: CUBICIN 25 MG IV (19:01)
--- NOTE | 2025-05-13 20:00 | PTCARENOTE ---
Assumed care of patient at 1900. Patient found resting in bed at time of assessment. Patient is Aox4, follows commands appropriately, moves all extremities. Lung sounds are diminished in the bases, saO2 96% on RA. Heart sounds are audible, patient
is 100% vpaced on the monitor, there is a transvenous PM with VVI settings. Patient has normal palpable radial pulses and pedals are present via doppler. +2 BLE edema. Fingernails are dusky in appearance. Patient has active BS reports BM this AM and
is oliguric/anuric HD player. Patient has R IJ corids, R arm PICC, L AC PIV and L FA PIV. Patient has MASD of gluteal cleft treated with antifungal powder. Scabbing of BLE as remnants of vanco reaction. R foot wound from previous I+D site with 4x4
gauze and kerlix dressing. Patient reports difficulty sleeping melatonin added. VSS. Call velázquez within reach.
[2025-05-13] MEDS: DESENEX/MITRAZOL/ZEASORB 1 APPLIC TOPICAL (20:26)
[2025-05-13] MEDS: HEPARIN 5000 UNITS SC (20:27)
[2025-05-13 20:45] LABS: Glucose - Point of Care 94 mg/dl (70-99)
[2025-05-13] MEDS: MELATONIN 5 MG PO (22:17)
[2025-05-13 23:28] LABS: Blood Urea Nitrogen 34 mg/dl (9-20); Calcium 8.8 mg/dl (8.4-10.2); Carbon Dioxide 25 mmol/L (22-30); Chloride 96 mmol/L (98-107); Estimated Creatinine Clearance 21 ml/min; Glucose 89 mg/dl (70-99); Potassium 5.0 mmol/L (3.5-5.1); Sodium 130 mmol/L (135-145); eGFR 11.49
[2025-05-14] VITALS (66 sets, daily range): BP systolic 88–127; BP diastolic 44–93; BMI 31.2
--- NOTE | 2025-05-14 | PTCARENOTE ---
Patient reassessed. Remains 100% v paced. Patient c/o pain in buttocks 2/2 sitting in bed. Sacral foam and air cushion applied. Repositioning patient as appropriate. F/u lab work stable. Call velázquez within reach.
[2025-05-14 04:39] LABS: Hematocrit 31.4 % (39.0-52.0); Hemoglobin 10.2 g/dL (13.0-18.0); Mean Corp Hgb Conc. 32.5 g/dL (33.0-37.0); Mean Corpuscular Volume 93.5 fL (80.0-94.0); Nucleated Red Blood Cells % 0 % (-); Platelet Count 212 10^3/uL (130-400); Red Cell Dist. Width 15.9 % (11.5-14.5)
[2025-05-14 05:07] LABS: ALT (SGPT) 27 U/L (0-50); AST (SGOT) 22 U/L (17-59); Albumin 3.2 g/dl (3.5-5.0); Alkaline Phosphatase 225 U/L (38-126); Blood Urea Nitrogen 36 mg/dl (9-20); Calcium 8.7 mg/dl (8.4-10.2); Carbon Dioxide 25 mmol/L (22-30); Chloride 97 mmol/L (98-107); Estimated Creatinine Clearance 19 ml/min; Glucose 87 mg/dl (70-99); Potassium 5.7 mmol/L (3.5-5.1); Sodium 131 mmol/L (135-145); Total Protein 7.3 g/dl (6.3-8.2); eGFR 9.95
[2025-05-14] MEDS: LOKELMA 10 GRAM PO ×3 (05:42→20:31)
--- NOTE | 2025-05-14 06:48 | PTCARENOTE ---
Patient reassessed. Wound care provided. Lokelma administered. Patient's dialysis rescheduled for 7am today. AM hygiene care provided. Weighed in bed. Call velázquez within reach.
--- NOTE | 2025-05-14 07:05 | W.PN.HOSP.TC ---
Addendum entered and electronically signed by Dinah Kenyon MD 05/14/25 18:54:
I saw and evaluated the patient independently. I reviewed and discussed the resident�s note and agree with findings and plan as documented by Dr. Stoner.
GENERAL: well developed, well nourished, male in no apparent distress
HEENT: NC/AT
HEART: regular rate and rhythm, +S1, +S2
LUNGS : clear to auscultation bilaterally
ABDOM: soft, nontender, nondistended, + bowel sounds
EXT: no cyanosis, clubbing-- edema bilateral LE with vasculitis rash on both legs
NEUROLOGIC: grossly intact
Symptomatic bradycardia with syncope s/p temporary venous pacemaker for complete heart block--s/p atropine in the field--had BRENDAN with no progression of the endocarditis--apprec cards--cont pressors (levophed)--hold all AV blocking agents--cont
Eliquis--will need definitive pacer placement at some point--defer to cards
Hx paroxysmal A-fib- Continue eliquis
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 Pt had been d/c on IV daptomycin for 6wk course, non-op mgmt--BRENDAN without progression--apprec ID--cont IV dapto--follow blood cultures
Hx R toe osteomyelitis s/p surgical debridement--Toe cx at [facility] grew corynebacterium, IV dapto plan as above. (Tried linezolid, pt developed itching/hives & it was dc'd)--consult wound care- Continue IV daptomycin 1250 mg q48 through 06/01
Renal failure due to vancomycin vs. infectious nephrotoxicity on HD with hyperkalemia--volume and electrolytes managed by dialysis MWF- 48oz fluid restriction, K and Na restriction on HD- Holding lasix --apprec renal
Tobacco use--Cigarette use - curriculum counselor cessation
Obstructive sleep apnea - CPAP at night
DVT proph-- eliquis
Code status-- full
Original Note:
Today's Communication/Plan
-
- HD today
- Continue IV daptomycin
- BRENDAN today
- Cards, renal, ID following, appreciate recs
Assessment / Plan
Assessment / Plan
54-year-old M with a history of paroxysmal A-fib (on Eliquis), T2DM, essential hypertension, ongoing cigarette use, renal failure on HD (as of 3 weeks ago, 2/2 vancomycin toxicity vs. infectious/embolic), and recent admission to [facility] for right foot osteomyelitis, at which point he was found to have endocarditis, who presented following episode of LOC/unresponsiveness x3 while sitting at home, found to have complete A-V block, now s/p temporary pacemaker placement and
receiving HD and IV abx.
#Symptomatic bradycardia s/p temporary venous pacemaker
#Hx paroxysmal A-fib
Pt presented with syncopal episodes, found to have complete AV block, s/p atropine in the field, s/p emergency placement of temporary venous pacemaker (R IJ) on 05/13. Per cards, pt not candidate for permanent pacer (maybe micra) at this point in
time. TTE 05/13 demonstrated AV endocarditis, AV regurgitation, mild dilation of LV.
Today - HR 60, paced, pt asx.
- Continue holding atenlol
- Dobutamine PRN
- Per renal, discontinue dopamine
- Pending BRENDAN
- Continue eliquis
- Cardiology following, appreciate recs
#Infectious endocarditis
Thought to be 2/2 corynebacterium, found + at [facility] ~3 wk prior. Pt had been d/c on IV daptomycin for 6wk course, non-op mgmt. Had planned to f/u with OP pumping plant operator but had not yet.
- Pending BRENDAN
- Continue IV daptomycin 1250 mg q48 through 06/01
- Blood cx pending
- ID following, appreciate recs
- Cardiology following, appreciate recs
#Hx R toe osteomyelitis s/p surgical debridement
Toe cx at [facility] grew corynebacterium, IV dapto plan as above. (Tried linezolid, pt developed itching/hives & it was dc'd).
Today - no f/c, R foot with clean bandaging in place
- Wound care consult
- Continue IV daptomycin 1250 mg q48 through 06/01
#Renal failure 2/2 vancomycin vs. infectious nephrotoxicity on HD
#Hyperkalemia
Received 2 HD treatments while hospitalized about 3 weeks ago, then was receiving HD [facility] on Monday, Monday, and Monday. Renal bx read as glomerular and tubular damage from vancomycin and infectious glomerulonephritis.
Renal failure followed skin vasculitic rash following vancomycin. R tunneled IJ catheter placed Mar 2025.
K elevated 6.4 on presentation; s/p lokelma, IV Ca, insulin & dextrose, & short course HD 05/13
- HD today
- HD MWF moving forward
- Continue to monitor BMP
- 48oz fluid restriction, K and Na restriction on HD
- Holding lasix
- Renal following, appreciate recs
#Chronic
#Cigarette use - curriculum counselor cessation
#Obstructive sleep apnea - CPAP at night
#Global
- DVT ppx: eliquis
- Code: full
- Diet: NPO in advance of BRENDAN
- Dispo: pending stabilization of clinical status
Anticipated Discharge: 24 - 48 hours
Subjective/Interval History
-
Date of Service: May 14, 2025
Patient awake, alert, conversant this morning. No complaints, just feeling frustrated by his clinical course following toe surgery 3 to 4 weeks ago. Confirms that he was in normal state of health aside from chronic venous static disease with
nonhealing wound on right foot about 4 weeks ago prior to debridement surgery with podiatry. Following the surgery is when endocarditis was discovered and when he developed kidney failure requiring hemodialysis. Denies any fever/chills overnight,
denies any nausea, denies any chest pain, denies any palpitations. States that he has never had any chest symptoms such as palpitations, chest pain, shortness of breath, pleuritic pain. States that he has a low appetite.
Objective Data
-
Labs:
Laboratory Results
05/13/25 05/14/25
22:26 04:24
WBC 7.9
Hgb 10.2 L
Hct 31.4 L
Plt Count 212
Sodium 130 L 131 L
Potassium 5.0 5.7 H
Chloride 96 L 97 L
Carbon Dioxide 25 25
BUN 34 H 36 H
Creatinine 5.5 H* 6.2 H*
Glucose 89 87
Calcium 8.8 8.7
Total Bilirubin 1.3
AST 22
ALT 27
Alkaline Phosphatase 225 H
Vital Signs:
Vital Signs
Temp Pulse Resp BP Pulse Ox
97.7 F 60 35 127/59 96
05/13/25 20:00 05/14/25 05:45 05/14/25 05:45 05/14/25 05:00 05/14/25 05:45
I&O
05/13/25 05/14/25 05/15/25
06:59 06:59 06:59
Intake Total 150 / 150
Balance 150 / 150
Review of Systems
-
History Source: Patient
Constitutional: Reports No Appetite
EENT: Reports No Symptoms Reported
Respiratory: Reports No Symptoms
Cardiac: Reports No Symptoms
Abdomen/GI: Reports No Symptoms
Breast: Reports No Symptoms
Genitourinary: Reports No Symptoms
Musculoskeletal: Reports Edema
Skin: Reports Rash (Rash on bilateral lower extremities residual from presumed antibiotic infection, resolving per patient)
Neuro: Reports No Symptoms
Psych: Reports Sad
Physical Exam
-
General: Well Developed, Well Nourished and No Apparent Distress
HEENT: Normocephalic and Atraumatic
Respiratory: Clear to Auscultation and Non Labored Respirations
Cardiac: Regular Rhythm and Other (PICC line in place)
GI: Soft, Nontender and Nondistended
Genito-urinary: Other (Receiving hemodialysis)
Musculoskeletal: Other (Chronic venous static lower extremity edema bilaterally with woody skin changes and erythema)
Skin: Rash (See description above regarding bilateral lower extremities; patient also with some residual dusky vasculitic macules on bilateral anterior lower extremities)
Neuro: Awake, Alert and Oriented
Psych: Calm
Data Reviewed
-
Total Time Spent with Patient (in minutes): 15
Critical Care Time (in minutes): 60
Diagnostic Radiology: Image personally visualized and interpreted and Report Reviewed by me
CT Scan: Report Reviewed by me
Labs: Labs Reviewed by me
--- NOTE | 2025-05-14 07:30 | PTCARENOTE ---
Patient received from night supervisor sitting on side of bed, AAO x 3, denies pain. V-paced via cm, SaO2 @ 97% on RA. RIJ Cordis/temp TV pacing wire present set to VVI 60bpm, mA10, pacing appropriate. R chest wall HD cath present, patient currently
receiving HD M/W/F - scheduled for HD this am. INGRIDE PICC present. B/L LE scabs noted, dressing to R foot cdi. Patient updated to plan of care, in agreement. See work list for full assessment and interventions performed.
--- NOTE | 2025-05-14 08:26 | W.PN.CD ---
Addendum entered and electronically signed by Meir Centeno DO 05/14/25 11:47:
Review of telemetry shows RBBB without pacing.
This is suggestive that the CHB/syncope is mediated by decreased atenolol clearance rather than progression of IE, though it is not conclusive.
BRENDAN today or tomorrow to evaluate IE and presence/absence of abscess as this has significant prognostic/procedural implications.
Original Note:
Today's Communication / Plan
-
Continue to monitor HR while withholding atenolol.
BRENDAN for evaluation of AV/MV and for presence of abscess.
Titrate pressors/inotropes for MAP > 65 mmHg.
SUPERVISOR CORE SHOP per nephrology.
ABX management per ID.
Impression / Plan
-
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
requiring debridement at [facility] as well as medically managed infectious endocarditis admitted with bradycardia with heart rates in the 30s associated with loss of consciousness at home while sitting in the chair (witnessed by )
and continued altered mental status.
Primary Director Industrial Relations: Dr. Matamoros
#Symptomatic bradycardia/complete heart block:
-Acute, symptomatic.
-Patient with junctional, then idioventricular rhythm at 20-30 bpm; had loss of consciousness at home.
-Temporary wire placed yesterday, patient is 100% V-paced at 60 bpm.
-The underlying presumption is abscess formation from infectious endocarditis, thought iatrogenic heart sae from atenolol in the setting of renal failure is possible.
-If HR responds to holding atenolol and SUPERVISOR CORE SHOP (atenolol is moderately dialyzable), we can consider the possibility that this is not due to endocarditis.
-No role for PPM until we have sorted out the mechanism.
#PAF (on Eliquis):
-Currently in AF with complete heart block.
-Rate supported by TPM. Holding atenolol.
-Discontinue atenolol; insurance claims assistant in ICU.
-CHADS2-Vasc = 1 (HTN).
-Patient missed apixaban for 2 nights prior to admission. Currently off of anticoagulation.
#Endocarditis:
-Acute.
-Previously on antibiotics for medical management.
-Daptomycin 1250 mg q48h. Patient had adverse reactions to piperacillin-tazobactam, vancomycin and linezolid.
-Repeat echocardiogram shows abnormal AV with possible endocarditis and mitral valve thickening but no obvious vegetation.
-BCx NGTD.
#Hypotension:
-Acute, multifactorial; improving.
-Possibly related to sepsis vs. bradycardia.
-Titrate pressors/inotropes to keep MAP > 65 mmHg.
#ESRD/HD:
-New diagnosis as of [facility] admission.
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
-Nephrology consulted.
-SUPERVISOR CORE SHOP.
#Foot osteomyelitis:
-S/P third toe partial amputation/debridement.
-Management as per primary team.
#Chronic continued cigarette use:
- Counseled on the importance of smoking cessation.
Critical Care Time = 35 minutes.
Subjective/Interval History:
Temp wire placed yesterday.
Mental status has improved.
BP stabilized.
DATA:
TPM, 05/13/2025:
CONCLUSION: Successful placement of a temporary venous pacemaker from the right internal jugular vein.
Transthoracic Echocardiogram, 05/13/2025:
SUMMARY
1. Known aortic valve endocarditis.
2. The left ventricle is mildly dilated. Normal LV systolic function.
3. The aortic valve is abnormal. I suspect that there is a vegetation. There is moderate aortic regurgitation.
4. The mitral valve is thickened. No definite vegetation is seen. Mild to moderate mitral regurgitation.
5. No prior echocardiogram available for comparison. The medical records commented on known aortic valve vegetation but without significant aortic regurgitation.
Physical Exam
Vital Signs/Labs
Vital Signs
Temp Pulse Resp BP Pulse Ox
36.5 C 60 17 118/60 97
05/14/25 08:00 05/14/25 08:15 05/14/25 08:15 05/14/25 08:15 05/14/25 08:15
05/12/25 05/13/25 05/14/25
11:59 11:59 11:59
Actual Weight 124.4 kg 116.3 kg
05/14/25 04:24
05/14/25 04:24
PT 25.5 Sec (11.4-14.6) H 05/13/25 15:33
PT Cancelled 05/13/25 15:33
INR 2.30 05/13/25 15:33
INR Cancelled 05/13/25 15:33
APTT 41.0 Sec (23.4-35.0) H 05/13/25 15:33
TSH Cancelled 05/13/25 15:40
Physical Exam
Constitutional: No acute distress and Comfortable
EENT: Anicteric and Moist mucous membranes
Cardiovascular: Rhythm & rate is regular, Pedal edema is absent, JVD pressure is normal, S1S2 is normal and Murmur/rub/gallop absent
Respiratory: Respiratory effort normal, Lungs clear to auscul., Wheeze Absent, Crackles Absent and Rhonchi Absent
GI: Soft, Distention absent, Flat, Non tender and Normal bowel sounds
Neuro/Psych: AO x 3
Other: Cath Site (Right IJ site is under tegaderm, C/D/I.)
Data Reviewed
-
Date of Service: May 14, 2025
Medical Decision Making: Reviewed Test Results, Independent Historian Assessment and Test Interpretation
EKG: Tracing Personally Visualized and interpreted and Report Reviewed by me
Echo: Tracing Personally Visualized and interpreted and Report Reviewed by me
X-Ray/CT/US/MRI/NUC/PET: Image Personally Visualized and interpreted and Report Reviewed by me
Medical Tests (PFT, Pathology etc): Report Reviewed by me
Labs: Labs Reviewed by me
Old Records: Reviewed
[2025-05-14] MEDS: RENVELA PO ×2 (08:44→11:55)
[2025-05-14] MEDS: DESENEX/MITRAZOL/ZEASORB 1 APPLIC TOPICAL ×2 (08:54→19:46)
[2025-05-14] MEDS: HEPARIN 5000 UNITS SC ×2 (08:54→19:46)
[2025-05-14] MEDS: HYDROPHOR 1 APPLIC TOPICAL (08:55)
--- NOTE | 2025-05-14 09:00 | W.PN.NEPH.HD ---
Assessment
-
Patient seen on dialysis
Systolic blood pressure stable at 105 at current UF
Status post pacemaker placement yesterday for symptomatic bradycardia
Remains on daptomycin
Progress Note - Hemodialysis
-
Date of Service: May 14, 2025
Duration: 30 minutes and 3 hours
Potassium Bath: 2
Calcium Bath: 2.5
Opti-Dialyzer: 160
Ultrafiltration: Other (2kg)
Blood Flow: 400
Dialysate Flow: 600
Heparin: none
EPO: none
[2025-05-14] MEDS: HEPARIN INTRACATH (11:34)
[2025-05-14] MEDS: HEPARIN 43000 UNITS INTRACATH (11:36)
--- NOTE | 2025-05-14 11:58 | W.PN.INTV ---
Today's Communication / Plan
Recommendations
Possible BRENDAN today
Monitor rhythm
Follow BMP
Assessment
-
Impression
54-year-old male with PMH of paroxysmal atrial fibrillation on Eliquis, COPD, NAHUM is being admitted to the CV ICU for management of sinus bradycardia secondary to complete heart block s/p temporary Venous pacemaker implantation.
Recently he was hospitalized at [facility] on 04/17/2025 for right 3rd toe osteomyelitis. He developed broad skin allergic reaction secondary to piperacillin. Additionally his hospital course was complicated by nephrotoxicity 2/2
vancomycin. Renal biopsy showed infectious glomerulonephritis. Since then he was on hemodialysis Mon/mon/Mon. He was diagnosed with endocarditis and PICC line was placed on the right arm for treatment with daptomycin and linezolid. He is on
daptomycin to be continued for 42 days last day of antibiotics June 01, 2025
Plan
Symptomatic bradycardia 2/2 complete heart block
- Loss of consciousness at home, HR 30s
- Cardiology on board
- EKG : junctional then idioventricular rhythm at 20 to 30 bpm
- On 05/13/2025 s/p temporary venous pacemaker
- Dopamine 5mcg infusion off, prn
- dc atenolol
- check tsh, bmp
- Echo
----The aortic valve is abnormal. I suspect that there is a vegetation. There is moderate aortic regurgitation.
----The mitral valve is thickened. No definite vegetation is seen. Mild to moderate mitral regurgitation
-Possible BRENDAN today
-Continue n.p.o.
Paroxysmal atrial fibrillation
- hold Eliquis for possible cardiac surgery
- Xarelto was switched to Eliquis due to SANDY
- Last dose of Eliquis was this morning
Endocarditis
- linezolid was discontinued due to itching and hives, continue daptomycin
- Hold on permanent pacemaker placement due to risk of pacemaker infection
- blood cx - pending
- ID on board, input appreciated
History of right third toe osteomyelitis s/p partial bone resection
- Continue antibiotics
- Wound consult
Hypotension
- Hold atenolol, furosemide
- Monitor BP
Hyperkalemia
- He has been taking 20 mg potassium supplement daily - dc
- He was given insulin regular 5 U, IV calcium gluconate, dextrose 50%water, Lokelma
- Follow BMP
Acute kidney injury 2/2 vancomycin nephrotoxicity
- History of skin vasculitis, rash and renal failure 2/2 vancomycin and piperacillin/tazobactam
- Recent renal biopsy, infectious glomerulonephritis
- Hemodialysis Mon/mon/Mon
- Received short dialysis treatment yesterday 05/13/2025
- Hemodialysis 05/14/2024
- Nephrology on board
- 48oz fluid restriction, K and Na restriction on HD
- d/c lasix
Obstructive sleep apnea
- Uses CPAP at night
COPD
- Quit smoking since last hospitalization
Alcohol use disorder
- 2-3 beers daily
Full code
DVT prophylaxis: SQ heparin (Hold Eliquis)
Subjective Dataa
Subjective Data
Date of Service:
Date of Service: May 14, 2025
Subjective:
He is on hemodialysis.He complaints about not being able to sleep and feeling tired. He has pain on his bl legs primarily on the right side. Hurts only when he rubs things. Rash is getting better. He wants to sit on the chair than lying in the bed.
Overall he says feeling good. Denies lightheadedness, shortness of breath, chest pain, palpitations.
He his vitals this morning 124/72 (Map 86), P 60, O2 on room air 97%, Paced rhythm
He has dobutamine, dopamine infusion off
His labs this morning K5.7, BUN 36, Cr 6.2, ALP 225, CK<20, TSH 6.13
Review of Systems
Cardiopulmonary: Lower Extremity Pain (Bilateral)
Objective Data
Data Reviewed
Vital Signs / I&O / Oxygen:
Vital Signs
Temp Pulse Resp BP Pulse Ox
97.7 F 60 17 114/55 96
05/14/25 08:00 05/14/25 11:45 05/14/25 11:45 05/14/25 11:45 05/14/25 11:45
Intake and Output
05/13/25 05/14/25 05/15/25
06:59 06:59 06:59
Intake Total 150 / 160 50 / 50
Balance 150 / 160 50 / 50
Physical Exam
General: Comfortable
HEENT: Normocephalic and Anicteric
Cardiovascular: S1-S2 and Regular Rhythm
Respiratory: Clear
GI: Soft, Non Distended and Non Tender
Neurology: AO x 3 and No Motor Deficits
Skin: Warm, Dry and Rash (Bilateral discoloration on lower extremity)
Labs/Micro/Reports
Lab Data
05/14/25 04:24
05/14/25 04:24
Laboratory Results
05/13/25 05/13/25 05/13/25
15:33 15:33 15:33
PT Cancelled 25.5 H
INR Cancelled 2.30
APTT 41.0 H
--- NOTE | 2025-05-14 12:15 | PTCARENOTE ---
VS remain stable, assessment unchanged. HD completed, patient tolerated well. Patient for bedside BRENDAN w/Dr. Patel shortly, patient and spouse at bedside updated.
--- NOTE | 2025-05-14 12:52 | W.PN.ID1 ---
Date of Service
Date of Service: May 14, 2025
Today's Communication
Continue daptomycin
Assessment / Plan
# Complete AVB/bradycardia s/p temporary venous pacer placement 05/13/25
# Recent AV vegetation by TTE with mild AI neg blood cx's at [place], on daptomycin till 06/01/24
TTE here moderate aortic regurgitation
# Recent R 3rd toe osteomyelitis status post partial bone resection at [place] 04/21/25, cx Corynebacterium. On Daptomycin till 06/01/24
# SANDY-> ESRD on HD since 03/2025 at [place]. Renal bx 'infectious glomerulonephritis'.
Possibly due to Vancomycin +/- Zosyn vs embolic
#Hyperkalemia - continue HD today per renal
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
- Blood cx's, neg to date
- For BRENDAN. Appreciate cardiology.
- Continue Daptomycin 1250 mg q48 till 06/01/24.
supplement daptomycin dose after HD, if not due
CK normal
# Other PMHX
COPD
Hypertension
Paroxysmal atrial fibrillation
Dyslipidemia
Superior mesenteric artery stenosis
Venous insufficiency
Sleep apnea
Testicular torsion repair as a teenager
Chief Complaint
-: Other (heart block, toe ostoe, IE)
Subjective / Review of Systems
No complaints today.
Vital Signs / Physical Exam
Vital Signs
Vital Signs
Temp Pulse Resp BP Pulse Ox
98.1 F 60 28 109/50 96
05/14/25 12:00 05/14/25 12:00 05/14/25 12:00 05/14/25 12:00 05/14/25 12:00
Physical Exam
Constitutional: No Acute Distress and Comfortable
Cardiovascular: Regular Rate and S1/S2
Pulmonary: Clear
Gastrointestinal: Soft, Non Tender, Non Distended and Normal Bowel Sounds
Genito-Urinary: Negative CVA Tenderness
Neurological: AO x 3
Lines: HD Cath (RCW no erythema) and Other (RIJ temp venous pacer intact)
Objective Data
Lab Data
Lab Results
05/14/25 04:24
05/14/25 04:24
PT 25.5 Sec (11.4-14.6) H 05/13/25 15:33
PT Cancelled 05/13/25 15:33
INR 2.30 05/13/25 15:33
INR Cancelled 05/13/25 15:33
APTT 41.0 Sec (23.4-35.0) H 05/13/25 15:33
Estimated Creat Clear 19 ml/min 05/14/25 04:24
Lactic Acid Cancelled 05/13/25 19:29
Total Bilirubin 1.3 mg/dl (0.2-1.3) 05/14/25 04:24
AST 22 U/L (17-59) 05/14/25 04:24
ALT 27 U/L (0-50) 05/14/25 04:24
Alkaline Phosphatase 225 U/L (38-126) H 05/14/25 04:24
Most recent labs reviewed.
Micro Results:
05/13/25 12:11 Blood Culture - Preliminary
Blood/Venous No Growth in 24 hours- Final report to follow
05/13/25 12:02 Blood Culture - Preliminary
Blood/Venous No Growth in 24 hours- Final report to follow
--- NOTE | 2025-05-14 13:15 | PTCARENOTE ---
Bedside BRENDAN performed by Dr Mayberry.
--- NOTE | 2025-05-14 13:20 | W.PN.UPDATE ---
Update Note
Progress Note Update
BRENDAN performed. - Full report to follow . AV trileaflet with thickening and mobile density suggestive of endocarditis. Mild AR. Overall findings appears consistent with prior history. No clear evidence of root abcess. No prior images for comparison
.
I called and updated his
[2025-05-14] MEDS: RENVELA 2400 MG PO ×2 (15:06→18:42)
[2025-05-14 15:22] LABS: Glucose - Point of Care 91 mg/dl (70-99)
[2025-05-14] MEDS: CUBICIN 25 MG IV (18:15)
[2025-05-14] MEDS: MYLICON 160 MG PO (20:30)
[2025-05-14] MEDS: MUCINEX 600 MG PO (20:30)
[2025-05-15] VITALS (37 sets, daily range): BP systolic 87–138; BP diastolic 44–76; BMI 31.3
--- NOTE | 2025-05-15 | PTCARENOTE ---
Patient reassessed. Patient reporting congestion, gas pain. Given mucinex and simethicone HS. Call velázquez within reach.
[2025-05-15 03:41] LABS: Hematocrit 29.7 % (39.0-52.0); Hemoglobin 9.7 g/dL (13.0-18.0); Mean Corp Hgb Conc. 32.7 g/dL (33.0-37.0); Mean Corpuscular Volume 93.4 fL (80.0-94.0); Nucleated Red Blood Cells % 0 % (-); Platelet Count 220 10^3/uL (130-400); Red Cell Dist. Width 16.0 % (11.5-14.5)
[2025-05-15 04:05] LABS: ALT (SGPT) 29 U/L (0-50); AST (SGOT) 29 U/L (17-59); Albumin 3.0 g/dl (3.5-5.0); Alkaline Phosphatase 243 U/L (38-126); Blood Urea Nitrogen 28 mg/dl (9-20); Calcium 8.3 mg/dl (8.4-10.2); Carbon Dioxide 27 mmol/L (22-30); Chloride 95 mmol/L (98-107); Estimated Creatinine Clearance 22 ml/min; Glucose 98 mg/dl (70-99); Potassium 4.2 mmol/L (3.5-5.1); Sodium 131 mmol/L (135-145); Total Protein 6.8 g/dl (6.3-8.2); eGFR 12.29
[2025-05-15] MEDS: LOKELMA 10 GRAM PO (06:41)
--- NOTE | 2025-05-15 06:52 | PTCARENOTE ---
Patient reassessed. Remains vpaced. AM hygiene care provided. Wound care provided. AM labs obtained oob to chair without incident.
--- NOTE | 2025-05-15 07:07 | W.PN.HOSP.TC ---
Addendum entered and electronically signed by Dinah Kenyon MD 05/15/25 17:45:
I saw and evaluated the patient independently. I reviewed and discussed the resident�s note and agree with findings and plan as documented by Dr. Stoner.
GENERAL: well developed, well nourished, male in no apparent distress
HEENT: NC/AT
HEART: regular rate and rhythm, +S1, +S2
LUNGS : clear to auscultation bilaterally
ABDOM: soft, nontender, nondistended, + bowel sounds
EXT: no cyanosis, clubbing-- edema bilateral LE with vasculitis rash on both legs
NEUROLOGIC: grossly intact
Symptomatic bradycardia with syncope s/p temporary venous pacemaker for complete heart block--s/p atropine in the field--had BRENDAN with no progression of the endocarditis--apprec cards--pressors (levophed) seem to be off--hold all AV blocking
agents--cont Eliquis--may definitive pacer placement at some point--defer to cards
shock physiology--required pressors--unclear if septic (doubt with neg blood cultures and already on abx for endocarditis), cardiogenic (possible due to CHB and temp pacer), vs atenolol effects in pt on HD--resolved
Hx paroxysmal A-fib- Continue eliquis
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 Pt had been d/c on IV daptomycin for 6wk course, non-op mgmt--BRENDAN without progression--apprec ID--cont IV dapto--follow blood cultures
Hx R toe osteomyelitis s/p surgical debridement--Toe cx at [place] grew corynebacterium, IV dapto plan as above. (Tried linezolid, pt developed itching/hives & it was dc'd)--consult wound care- Continue IV daptomycin 1250 mg q48 through 06/01
Renal failure due to vancomycin vs. infectious nephrotoxicity on HD with hyperkalemia--volume and electrolytes managed by dialysis MWF- 48oz fluid restriction, K and Na restriction on HD- Holding lasix --apprec renal
Tobacco use--Cigarette use - employment counselor cessation
Obstructive sleep apnea - CPAP at night
DVT proph-- eliquis
Code status-- full
Original Note:
Today's Communication/Plan
-
- Continue daptomycin IV
- Continue to monitor HR & BP off atenolol
- HD on MWF
- Temporary pacer removal timing per cards
- Continue wound care
Assessment / Plan
Assessment / Plan
54-year-old M with a history of paroxysmal A-fib (on Eliquis), T2DM, essential hypertension, ongoing cigarette use, renal failure on HD (as of 3 weeks ago, 2/2 vancomycin toxicity vs. infectious/embolic), and recent admission to [facility] for right foot osteomyelitis, at which point he was found to have endocarditis, who presented following episode of LOC/unresponsiveness x3 while sitting at home, found to have bradycardia, now s/p temporary pacemaker placement and receiving
HD and IV abx.
#Symptomatic bradycardia s/p temporary venous pacemaker
#Hx paroxysmal A-fib
Pt presented with syncopal episodes, found to have complete AV block, s/p atropine in the field, s/p emergency placement of temporary venous pacemaker (R IJ) on 05/13. Likely triggered by known infectious vegetation on AV. Per cards, pt not
candidate for permanent pacer (maybe micra) at this point in time on 05/13. TTE 05/13 demonstrated AV endocarditis, AV regurgitation, mild dilation of LV. BRENDAN 05/14 with thickened AV with mobile echodensity c/w vegetation; normal LVEF 55-60%;
mild-mod AR, MR, TR.
Today - HR 60, paced, pt asx.
- Continue holding atenlol
- Continue eliquis
- Per cards, will plan remove temporary pacer pending following if shirin resolves with continuing to hold atenolol
- Cardiology following, appreciate recs
#Infectious endocarditis
Thought to be 2/2 corynebacterium, found + from osteomyelitis cx at [place] ~3 wk prior. Pt had been on IV daptomycin for 6wk course, non-op mgmt. Had planned to f/u with OP patrol police lieutenant but had not yet. BRENDAN 05/14 confirmed AV vegetation.
Blood cx w no growth 24hr. Per cards, will continue non-op mgmt given aseptic in abx.
- Continue IV daptomycin 1250 mg q48 through 06/01
- Blood cx final report pending
- ID following, appreciate recs
- Cardiology following, appreciate recs
#Hx R toe osteomyelitis s/p surgical debridement
Toe cx at [place] grew corynebacterium, IV dapto plan as above. (Tried linezolid, pt developed itching/hives & it was dc'd). R foot with clean bandaging, being managed by wound care.
- Wound care following
- Continue IV daptomycin 1250 mg q48 through 06/01
#Renal failure 2/2 vancomycin vs. infection-related nephrotoxicity on HD
#Hyperkalemia, improved s/p HD
Received 2 HD treatments while hospitalized about 3 weeks ago, then was receiving HD [facility] on Monday, Monday, and Monday. Renal bx read as glomerular and tubular damage from vancomycin and infectious glomerulonephritis.
Renal failure followed skin vasculitic rash following vancomycin. R tunneled IJ catheter placed Mar 2025.
K elevated 6.4 on presentation; s/p lokelma, IV Ca, insulin & dextrose, & HD 05/13 & 05/14; K normalized
- HD on MWF schedule
- Continue to monitor BMP
- 48oz fluid restriction, K and Na restriction on HD
- Holding lasix
- Renal following, appreciate recs
#Hypotension, resolved
Hypotension on admission, possibly from shock (cardiogenic vs. septic) requiring dobutamine/dopamine on admission, but since resolved off pressors. Likely just 2/2 atenolol accumulation in s/o renal failure for renally cleared medication, which also
contributed to his bradycardia.
- Continue to monitor
#Chronic
#Cigarette use - employment counselor cessation
#Obstructive sleep apnea - CPAP at night
#Global
- DVT ppx: eliquis
- Code: full
- Diet: normal
- Dispo: pending stabilization of clinical status
Anticipated Discharge: 24 - 48 hours
Subjective/Interval History
-
Date of Service: May 15, 2025
Pt well this am, without complaints. Denies any CP, SOB, palpitations, n/v. States that he feels a bit gassy/bloated. Aware of PRN laxatives. Had BM yesterday.
Objective Data
-
Labs:
Laboratory Results
05/15/25
03:27
WBC 6.7
Hgb 9.7 L
Hct 29.7 L
Plt Count 220
Sodium 131 L
Potassium 4.2 D
Chloride 95 L
Carbon Dioxide 27
BUN 28 H
Creatinine 5.2 H*
Glucose 98
Calcium 8.3 L
Total Bilirubin 1.4 H
AST 29
ALT 29
Alkaline Phosphatase 243 H
Vital Signs:
Vital Signs
Temp Pulse Resp BP Pulse Ox
99.3 F 60 21 126/61 95
05/15/25 03:00 05/15/25 06:45 05/15/25 06:45 05/15/25 05:00 05/15/25 05:15
I&O
05/14/25 05/15/25 05/16/25
06:59 06:59 06:59
Intake Total 150 / 160 630 / 630
Balance 150 / 160 630 / 630
Review of Systems
-
History Source: Patient
Constitutional: Reports No Symptoms
EENT: Reports No Symptoms Reported
Respiratory: Reports No Symptoms
Cardiac: Reports No Symptoms
Abdomen/GI: Reports Abdominal Pain (gas/bloating )
Breast: Reports No Symptoms
Genitourinary: Reports No Symptoms
Musculoskeletal: Reports Edema
Skin: Reports Rash (Rash on bilateral lower extremities residual from presumed antibiotic infection, resolving per patient)
Neuro: Reports No Symptoms
Psych: Reports Sad
Physical Exam
-
General: Well Developed, Well Nourished and No Apparent Distress
HEENT: Normocephalic and Atraumatic
Respiratory: Clear to Auscultation and Non Labored Respirations
Cardiac: Regular Rhythm and Other (PICC line in place; temporary pacer in place; IJ HD cath)
GI: Soft, Nontender and Nondistended
Genito-urinary: Other (Receiving hemodialysis)
Musculoskeletal: Other (Chronic venous static lower extremity edema bilaterally with woody skin changes and erythema)
Skin: Rash (See description above regarding bilateral lower extremities; patient also with some residual dusky vasculitic macules on bilateral anterior lower extremities)
Neuro: Awake, Alert and Oriented
Psych: Calm
Data Reviewed
-
Total Time Spent with Patient (in minutes): 10
Critical Care Time (in minutes): 45
Medical Tests (Nuc Med, Echo etc): Report Reviewed by me
Labs: Labs Reviewed by me
[2025-05-15] MEDS: HYDROPHOR 1 APPLIC TOPICAL (07:39)
[2025-05-15] MEDS: MUCINEX 600 MG PO ×2 (07:39→20:34)
[2025-05-15] MEDS: DESENEX/MITRAZOL/ZEASORB 1 APPLIC TOPICAL ×2 (07:39→20:34)
[2025-05-15] MEDS: RENVELA 2400 MG PO ×3 (07:39→18:31)
[2025-05-15] MEDS: HEPARIN 5000 UNITS SC ×2 (07:39→20:34)
[2025-05-15] MEDS: MYLICON 80 MG PO (07:43)
--- NOTE | 2025-05-15 07:49 | W.PN.INTV ---
Today's Communication / Plan
Recommendations
Follow cards and ID recs for possible PPM
Assessment
-
Impression
54-year-old male with PMH of paroxysmal atrial fibrillation on Eliquis, COPD, NAHUM is being admitted to the CV ICU for management of sinus bradycardia secondary to complete heart block s/p temporary Venous pacemaker implantation.
Recently he was hospitalized at [facility] on 04/17/2025 for right 3rd toe osteomyelitis. He developed broad skin allergic reaction secondary to piperacillin. Additionally his hospital course was complicated by nephrotoxicity 2/2
vancomycin. Renal biopsy showed infectious glomerulonephritis. Since then he was on hemodialysis Mon/mon/Mon. He was diagnosed with endocarditis and PICC line was placed on the right arm for treatment with daptomycin and linezolid. He is on
daptomycin to be continued for 42 days last day of antibiotics June 01, 2025
Plan
Symptomatic bradycardia 2/2 complete heart block
- Loss of consciousness at home, HR 30s
- Cardiology on board
- EKG : junctional then idioventricular rhythm at 20 to 30 bpm
- On 05/13/2025 s/p temporary venous pacemaker placement
- Currently dopamine/dobutamine infusion off, prn
- Today he is asymptomatic, pacing, P60
- dc atenolol
- Echo
----The aortic valve is abnormal. Suspect for vegetation. There is moderate aortic regurgitation.
----The mitral valve is thickened. No definite vegetation is seen. Mild to moderate mitral regurgitation
- BRENDAN 05/14/2025
----EF 55 to 60%, thickened trileaflet aortic valve, 6 mm mobile echodensity seen on the ventricular side of the valve concern for vegetation. Endocarditis.
Paroxysmal atrial fibrillation
- hold Eliquis for possible cardiac procedure
- Xarelto was switched to Eliquis due to SANDY
- Last dose of Eliquis was 05/13
Endocarditis
- linezolid was discontinued due to itching and hives, continue daptomycin
- Hold on permanent pacemaker placement due to risk of pacemaker infection
- blood cx -NG in 24 hours
- ID on board, input appreciated
History of right third toe osteomyelitis s/p partial bone resection
- Continue antibiotics
- Wound consult
Hypotension
- Hold atenolol, furosemide
- Monitor BP
Hyperkalemia
- He has been taking 20 mg potassium supplement daily - dc
- He was given insulin regular 5 U, IV calcium gluconate, dextrose 50%water, Lokelma
- Follow BMP
Acute kidney injury 2/2 vancomycin nephrotoxicity
- History of skin vasculitis, rash and renal failure 2/2 vancomycin and piperacillin/tazobactam
- Recent renal biopsy, infectious glomerulonephritis
- Hemodialysis Mon/mon/Mon
- Received short dialysis treatment 05/13/2025
- Regular hemodialysis 05/14/2024
- Nephrology on board
- 48oz fluid restriction, K and Na restriction on HD
- d/c lasix
Obstructive sleep apnea
- Uses CPAP at night
COPD
- Quit smoking since last hospitalization
Alcohol use disorder
- 2-3 beers daily
Full code
DVT prophylaxis: SQ heparin (Hold Eliquis)
Subjective Dataa
Subjective Data
Date of Service:
Date of Service: May 15, 2025
Subjective:
This morning he is sitting on the chair, he complaints about feeling congested. He has a little bit of shortness of breath when he moves around. Denies resting sob, chest pain, palpitations, lightheadedness. He he had a bowel movement yesterday but
still feels he has a lot of gas. No urine. Possible hd tomorrow.
Objective Data
Data Reviewed
Vital Signs / I&O / Oxygen:
Vital Signs
Temp Pulse Resp BP Pulse Ox
99.3 F 60 21 126/61 95
05/15/25 03:00 05/15/25 06:45 05/15/25 06:45 05/15/25 05:00 05/15/25 05:15
Intake and Output
05/14/25 05/15/25 05/16/25
06:59 06:59 06:59
Intake Total 150 / 160 630 / 630
Balance 150 / 160 630 / 630
SaO2 95
Nasal Cannula flow liters per 2
minute
Physical Exam
General: Comfortable
HEENT: Normocephalic and Anicteric
Cardiovascular: S1-S2 and Regular Rhythm
Respiratory: Clear
GI: Soft, Non Distended and Non Tender
Neurology: AO x 3 and No Motor Deficits
Skin: Warm, Dry and Rash (Bilateral discoloration on lower extremity)
Labs/Micro/Reports
Lab Data
05/15/25 03:27
05/15/25 03:27
Microbiology
05/13/25 12:11 Blood/Venous Blood Culture - Preliminary
No Growth in 24 hours- Final report to follow
05/13/25 12:02 Blood/Venous Blood Culture - Preliminary
No Growth in 24 hours- Final report to follow
--- NOTE | 2025-05-15 08:14 | W.PN.CD ---
Today's Communication / Plan
-
Ambulate.
Glucagon 5 mg IV this morning.
Decrease TPM rate to 50 bpm VVI.
If no response or consistent pacing, we will consult with EP and ID regarding PPM placement.
Impression / Plan
-
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
requiring debridement at [facility] as well as medically managed infectious endocarditis admitted with bradycardia with heart rates in the 30s associated with loss of consciousness at home while sitting in the chair (witnessed by )
and continued altered mental status.
Primary Tool Machine Setup Operator: Dr. Matamoros
#Symptomatic bradycardia/complete heart block:
-Acute, symptomatic.
-Patient with junctional, then idioventricular rhythm at 20-30 bpm; had loss of consciousness at home.
-Temporary wire placed yesterday, patient is 100% V-paced at 60 bpm.
-Ambulate to assess rate response.
-Decrease TPM rate to 50 bpm VVI.
-Repeat glucagon 5 mg IV this morning.
-If there continues to be no response, I will discuss with EP and ID regarding PPM placement.
#PAF (on Eliquis):
-Currently in AF with complete heart block.
-Rate supported by TPM. Holding atenolol.
-Discontinue atenolol; awake overnight monitor in ICU.
-CHADS2-Vasc = 1 (HTN).
-Patient missed apixaban for 2 nights prior to admission. Currently off of anticoagulation.
#Endocarditis:
-Acute.
-Previously on antibiotics for medical management.
-Daptomycin 1250 mg q48h. Patient had adverse reactions to piperacillin-tazobactam, vancomycin and linezolid.
-Repeat echocardiogram shows abnormal AV with possible endocarditis and mitral valve thickening but no obvious vegetation.
-BCx - No growth in 24 hours (x2).
#Hypotension:
-Acute, multifactorial; improving.
-Possibly related to sepsis vs. bradycardia.
-Titrate pressors/inotropes to keep MAP > 65 mmHg.
#ESRD/HD:
-New diagnosis as of [facility] admission.
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
-Nephrology consulted.
-CIRCUIT BREAKER MECHANIC.
#Foot osteomyelitis:
-S/P third toe partial amputation/debridement.
-Management as per primary team.
#Chronic continued cigarette use:
- Counseled on the importance of smoking cessation.
Critical Care Time = 32 minutes.
Subjective/Interval History:
BRENDAN yesterday shows no evidence of aortic root abscess.
Glucagon 2 mg IV given without effect.
Weight stable.
DATA:
TPM, 05/13/2025:
CONCLUSION: Successful placement of a temporary venous pacemaker from the right internal jugular vein.
Transthoracic Echocardiogram, 05/13/2025:
SUMMARY
1. Known aortic valve endocarditis.
2. The left ventricle is mildly dilated. Normal LV systolic function.
3. The aortic valve is abnormal. I suspect that there is a vegetation. There is moderate aortic regurgitation.
4. The mitral valve is thickened. No definite vegetation is seen. Mild to moderate mitral regurgitation.
5. No prior echocardiogram available for comparison. The medical records commented on known aortic valve vegetation but without significant aortic regurgitation.
BRENDAN, 05/14/2025:
SUMMARY
1. Normal left ventricular systolic function.
2. Estimate ejection fraction 55 to 60%.
3. Thickened trileaflet aortic valve with mobile echodensity as described below. Overall appearance is consistent with vegetation.
4. Mild to moderate aortic regurgitation.
5. Moderate mitral regurgitation.
6. Mild to moderate tricuspid regurgitation.
Physical Exam
Vital Signs/Labs
Vital Signs
Temp Pulse Resp BP Pulse Ox
37.4 C 60 21 126/61 95
05/15/25 03:00 05/15/25 06:45 05/15/25 06:45 05/15/25 05:00 05/15/25 05:15
05/13/25 05/14/25 05/15/25
11:59 11:59 11:59
Actual Weight 124.4 kg 116.3 kg 116.7 kg
05/15/25 03:27
05/15/25 03:27
PT 25.5 Sec (11.4-14.6) H 05/13/25 15:33
PT Cancelled 05/13/25 15:33
INR 2.30 05/13/25 15:33
INR Cancelled 05/13/25 15:33
APTT 41.0 Sec (23.4-35.0) H 05/13/25 15:33
TSH Cancelled 05/13/25 15:40
Physical Exam
Constitutional: No acute distress and Comfortable
EENT: Anicteric and Moist mucous membranes
Cardiovascular: Rhythm & rate is regular, Pedal edema is absent, JVD pressure is normal, S1S2 is normal and Murmur/rub/gallop absent
Respiratory: Respiratory effort normal, Lungs clear to auscul., Wheeze Absent, Crackles Absent and Rhonchi Absent
GI: Soft, Distention absent, Flat, Non tender and Normal bowel sounds
Neuro/Psych: AO x 3
Other: Cath Site ([facility] site is C/D/I.)
Data Reviewed
-
Date of Service: May 15, 2025
Medical Decision Making: Reviewed Test Results, Independent Historian Assessment and Test Interpretation
EKG: Tracing Personally Visualized and interpreted and Report Reviewed by me
Echo: Tracing Personally Visualized and interpreted and Report Reviewed by me
X-Ray/CT/US/MRI/NUC/PET: Image Personally Visualized and interpreted and Report Reviewed by me
Medical Tests (PFT, Pathology etc): Image Personally Visualized and interpreted and Report Reviewed by me
Labs: Labs Reviewed by me
Old Records: Reviewed
--- NOTE | 2025-05-15 08:22 | PTCARENOTE ---
Received pt from production supervisor off shift RN at 0700; pt AAOX3 and resting comfortably in chair; V-paced 100% on monitor and VSS; Right single lumen PICC, PIV x2, RIJ temporary pacing wire and Right tunnel HD cath all lines patent; Lungs diminished; positive
bowel sounds; pt anuric; palpable radial pulses and present Doppler lower extremity DP; +2 lower extremity edema noted; wound care done by production supervisor off shift RN and dressing C/D/I; see nursing documentation for further details.
--- NOTE | 2025-05-15 10:28 | W.PN.ID1 ---
Date of Service
Date of Service: May 15, 2025
Today's Communication
Continue Daptomycin.
Assessment / Plan
# Complete AVB/bradycardia s/p temporary venous pacer placement 05/13/25
# Recent AV vegetation by TTE with mild AI, neg blood cx's, neg Bartonella/Q fever serologies, at [place], on daptomycin till 06/01/24
TTE here moderate aortic regurgitation
# Recent R 3rd toe osteomyelitis status post partial bone resection at [place] 04/21/25, cx Corynebacterium. On Daptomycin till 06/01/24
# SANDY-> ESRD on HD since 03/2025 at [place]. Renal bx 'infectious glomerulonephritis'.
Possibly due to Vancomycin +/- Zosyn vs embolic
# Recent skin vasculitis on Vanco/Zosyn combo at [place]
- Blood cx's, neg to date
- 05/14 BRENDAN: Thickened trileaflet aortic valve there is a mobile echodensity seen on the ventricular side of the valve which appears to measure up to 6 mm raising concern for vegetation. Mild to moderate aortic regurgitation.
- Continue Daptomycin 1250 mg q48 till 06/01/24. CK normal
- From ID standpoint, clear for PPM, if needed. Consider leadless Esperanza pacer, if candidate.
# Other PMHX
COPD
Hypertension
Paroxysmal atrial fibrillation
Dyslipidemia
Superior mesenteric artery stenosis
Venous insufficiency
Sleep apnea
Testicular torsion repair as a teenager
Chief Complaint
-: Other (heart block, toe ostoe, IE)
Subjective / Review of Systems
Feels well today.
Vital Signs / Physical Exam
Vital Signs
Vital Signs
Temp Pulse Resp BP Pulse Ox
98.4 F 60 20 126/61 95
05/15/25 08:00 05/15/25 06:45 05/15/25 08:00 05/15/25 05:00 05/15/25 08:29
Physical Exam
Constitutional: No Acute Distress and Comfortable
Cardiovascular: Regular Rate and S1/S2
Pulmonary: Clear
Gastrointestinal: Soft, Non Tender, Non Distended and Normal Bowel Sounds
Genito-Urinary: Negative CVA Tenderness
Neurological: AO x 3
Lines: HD Cath (RCW no erythema) and Other (RIJ temp venous pacer intact)
Objective Data
Lab Data
Lab Results
05/15/25 03:27
05/15/25 03:27
PT 25.5 Sec (11.4-14.6) H 05/13/25 15:33
PT Cancelled 05/13/25 15:33
INR 2.30 05/13/25 15:33
INR Cancelled 05/13/25 15:33
APTT 41.0 Sec (23.4-35.0) H 05/13/25 15:33
Estimated Creat Clear 22 ml/min 05/15/25 03:27
Lactic Acid Cancelled 05/13/25 19:29
Total Bilirubin 1.4 mg/dl (0.2-1.3) H 05/15/25 03:27
AST 29 U/L (17-59) 05/15/25 03:27
ALT 29 U/L (0-50) 05/15/25 03:27
Alkaline Phosphatase 243 U/L (38-126) H 05/15/25 03:27
Most recent labs reviewed.
Micro Results:
05/13/25 12:11 Blood Culture - Preliminary
Blood/Venous No Growth in 24 hours- Final report to follow
05/13/25 12:02 Blood Culture - Preliminary
Blood/Venous No Growth in 24 hours- Final report to follow
--- NOTE | 2025-05-15 11:52 | PTCARENOTE ---
V-paced on monitor and VSS; pt ambulated hallway with RN, HR stayed [address] updated; assessment unchanged and pt resting comfortably in chair with family at bedside.
--- NOTE | 2025-05-15 15:34 | W.PN.NEPH.PH ---
Today's Communication / Plan
-
Dialysis in a.m.
Assessment/Plan
-
Assessment
Aortic valve vegetation
Bradycardia status post pacemaker
SANDY on dialysis
Postinfectious glomerulonephritis
Hyperkalemia
Hyponatremia
Anemia
Plan
Continue MWF
Continue daptomycin post HD
Possible pacemaker placement tomorrow
Patient essentially anuric.
Plan for HD for [facility] in the morning then if proceeding with PPM would be okay to proceed with placement after dialysis
Discussed with patient and
Total Time Spent with Patient (in minutes): 31
-
-
Date of Service: May 15, 2025
CC / HPI / ROS
-
Chief Complaint:
Bradycardia
History of Present Illness:
SANDY on dialysis
Review of Systems:
No chest pain or shortness of breath
Labs
-
Labs:
WBC 6.7 10^3/uL (4.8-10.8) 05/15/25 03:27
RBC 3.18 10^6/uL (4.70-6.10) L 05/15/25 03:27
Hgb 9.7 g/dL (13.0-18.0) L 05/15/25 03:27
Hct 29.7 % (39.0-52.0) L 05/15/25 03:27
Plt Count 220 10^3/uL (130-400) 05/15/25 03:27
Sodium 131 mmol/L (135-145) L 05/15/25 03:27
Potassium 4.2 mmol/L (3.5-5.1) D 05/15/25 03:27
Chloride 95 mmol/L (98-107) L 05/15/25 03:27
Carbon Dioxide 27 mmol/L (22-30) 05/15/25 03:27
BUN 28 mg/dl (9-20) H 05/15/25 03:27
Creatinine 5.2 mg/dL (0.7-1.3) H* 05/15/25 03:27
eGFR 12.29 05/15/25 03:27
Glucose 98 mg/dl (70-99) 05/15/25 03:27
Calcium 8.3 mg/dl (8.4-10.2) L 05/15/25 03:27
Albumin 3.0 g/dl (3.5-5.0) L 05/15/25 03:27
Physical Exam
-
Vital Signs:
Vital Signs
Temp Pulse Resp BP Pulse Ox
98.6 F 50 20 100/53 95
05/15/25 11:53 05/15/25 11:45 05/15/25 11:53 05/15/25 11:02 05/15/25 11:53
Respiratory:: Bilateral: Coarse
Lung Excursion:: Normal
Abdomen:: Soft
Bowel Sounds:: Normal
Extremity Edema:: +2: Bilateral:
--- NOTE | 2025-05-15 15:37 | PTCARENOTE ---
V-paced 100% on monitor and VSS; assessment unchanged and pt resting comfortably in bed with family at bedside.
--- NOTE | 2025-05-15 17:25 | PTCARENOTE ---
Received pt from CVICU room 2263 via staxi chair with right IJ TVP VVI 60/10/0.8 with HR 100% v-paced 65, kvo nss via cordis. Dressing CDI. Left arm 18g protective catheters both flushed and patent. Right upper arm SL PICC flushed and patent. Good
radial pulses. Dressing to right foot w/boot intact. Brown discoloration of both L/E's from his knee down. Lungs CTA. Encouraged coughing and deep breathing for the prevention of atelectasis. He and his verbalized their understanding. They also
were encouraged to watch their health care videos. Oriented to the ICU and the use of the call velázquez. Safe environment maintained.
--- NOTE | 2025-05-15 17:47 | PTCARENOTE ---
Report given to AUGER OPERATOR; pt transported to [id number] with belongings.
[2025-05-15] MEDS: DILAUDID 0.5 MG IV (20:34)
[2025-05-15] MEDS: LEVOPHED 250 IV (20:40)
[2025-05-15 21:54] LABS: Glucose - Point of Care 141 mg/dl (70-99)
[2025-05-16] VITALS (38 sets, daily range): BP systolic 107–151; BP diastolic 49–78; BMI 31.4
--- NOTE | 2025-05-16 00:37 | PTCARENOTE ---
No changes in assessment.
--- NOTE | 2025-05-16 02:15 | PTCARENOTE ---
No change in assessment.
[2025-05-16 03:52] LABS: Hematocrit 28.5 % (39.0-52.0); Hemoglobin 9.4 g/dL (13.0-18.0); Mean Corp Hgb Conc. 33.0 g/dL (33.0-37.0); Mean Corpuscular Volume 93.4 fL (80.0-94.0); Nucleated Red Blood Cells % 0 % (-); Platelet Count 226 10^3/uL (130-400); Red Cell Dist. Width 16.0 % (11.5-14.5)
[2025-05-16 04:12] LABS: ALT (SGPT) 21 U/L (0-50); AST (SGOT) 19 U/L (17-59); Albumin 2.8 g/dl (3.5-5.0); Alkaline Phosphatase 194 U/L (38-126); Blood Urea Nitrogen 47 mg/dl (9-20); Calcium 8.0 mg/dl (8.4-10.2); Carbon Dioxide 21 mmol/L (22-30); Chloride 96 mmol/L (98-107); Estimated Creatinine Clearance 18 ml/min; Glucose 93 mg/dl (70-99); Potassium 4.1 mmol/L (3.5-5.1); Sodium 129 mmol/L (135-145); Total Protein 6.6 g/dl (6.3-8.2); eGFR 9.58
--- NOTE | 2025-05-16 07:04 | W.PN.HOSP.TC ---
Addendum entered and electronically signed by Dinah Kenyon MD 05/16/25 10:46:
I saw and evaluated the patient independently. I reviewed and discussed the resident�s note and agree with findings and plan as documented by Dr. Stoner.
GENERAL: well developed, well nourished, male in no apparent distress
HEENT: NC/AT
HEART: regular rate and rhythm, +S1, +S2
LUNGS : clear to auscultation bilaterally
ABDOM: soft, nontender, nondistended, + bowel sounds
EXT: no cyanosis, clubbing-- edema bilateral LE with vasculitis rash on both legs
NEUROLOGIC: grossly intact
Symptomatic bradycardia with syncope s/p temporary venous pacemaker for complete heart block--s/p atropine in the field--had BRENDAN with no progression of the endocarditis--apprec cards--pressors (levophed) seem to be off--hold all AV blocking
agents--cont Eliquis-- definitive pacer placement today--defer to cards
shock physiology--required pressors--unclear if septic (doubt with neg blood cultures and already on abx for endocarditis), cardiogenic (possible due to CHB and temp pacer), vs atenolol effects in pt on HD--resolved
Hx paroxysmal A-fib- Continue eliquis
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 Pt had been d/c on IV daptomycin for 6wk course, non-op mgmt--BRENDAN without progression--apprec ID--cont IV dapto MWF post HD as per ID 1250mg M,
1250mg W, and 1500mg F through 06/01/25--blood cultures negative
Hx R toe osteomyelitis s/p surgical debridement--Toe cx at [facility] grew corynebacterium, IV dapto plan as above. (Tried linezolid, pt developed itching/hives & it was dc'd)--apprec wound care-
Renal failure due to vancomycin vs. infectious nephrotoxicity on HD with hyperkalemia--volume and electrolytes managed by dialysis MWF- 48oz fluid restriction, K and Na restriction on HD- Holding lasix --apprec renal
Tobacco use--Cigarette use - dependency counselor cessation
Obstructive sleep apnea - CPAP at night
DVT proph-- eliquis
Code status-- full
Original Note:
Today's Communication/Plan
-
- Permanent pacer placement today
- HD later today after procedure
- Continue IV daptomycin
Assessment / Plan
Assessment / Plan
54-year-old M with a history of paroxysmal A-fib (on Eliquis), T2DM, essential hypertension, ongoing cigarette use, renal failure on HD (as of 3 weeks ago, 2/2 vancomycin toxicity vs. infectious/embolic), and recent admission to [facility] for right foot osteomyelitis, at which point he was found to have endocarditis, who presented following episode of LOC/unresponsiveness x3 while sitting at home, found to have bradycardia, now s/p temporary pacemaker placement and receiving
HD and IV abx, planning for permanent pacer todya.
#Symptomatic bradycardia s/p temporary venous pacemaker
#Hx paroxysmal A-fib
Pt presented with syncopal episodes, found to have complete AV block, s/p atropine in the field, s/p emergency placement of temporary venous pacemaker (R IJ) on 05/13. Likely triggered by known infectious vegetation on AV in s/o atenolol toxicity
2/2 renal failure. Per cards, pt not candidate for permanent pacer (maybe micra) on 05/13. TTE 05/13 demonstrated AV endocarditis, AV regurgitation, mild dilation of LV. BRENDAN 05/14 with thickened AV with mobile echodensity c/w vegetation; normal LVEF
55-60%; mild-mod AR, MR, TR. S/p 5mg glucagon x2 while holding atenlolol.
Today - HR 60, paced, pt asx.
- Continue holding atenlol
- S/p 5mg glucagon x2
- Continue eliquis
- Per cards, planning for permanent pacemaker placement today
- Cardiology following, appreciate recs
#Infectious endocarditis
Thought to be 2/2 corynebacterium, found + from osteomyelitis cx at [facility] ~3 wk prior. Pt had been on IV daptomycin for 6wk course, non-op mgmt. Had planned to f/u with OP miller head but had not yet. BRENDAN 05/14 confirmed AV vegetation.
Blood cx w no growth 48hr. Per cards, will continue non-op mgmt given aseptic in abx.
- Continue IV daptomycin 1250 mg q48 through 06/01
- ID following, appreciate recs
- Cardiology following, appreciate recs
#Hx R toe osteomyelitis s/p surgical debridement
Toe cx at [facility] grew corynebacterium, IV dapto plan as above. (Tried linezolid, pt developed itching/hives & it was dc'd). R foot with clean bandaging, being managed by wound care.
- Wound care following
- Continue IV daptomycin 1250 mg q48 through 06/01
#Renal failure 2/2 vancomycin vs. infection-related nephrotoxicity on HD
#Hyperkalemia, improved s/p HD
Received 2 HD treatments while hospitalized about 3 weeks ago, then was receiving HD [facility] on Monday, Monday, and Monday. Renal bx read as glomerular and tubular damage from vancomycin and infectious glomerulonephritis.
Renal failure followed skin vasculitic rash following vancomycin. R tunneled IJ catheter placed Mar 2025. K elevated 6.4 on presentation; s/p lokelma, IV Ca, insulin & dextrose, & HD 05/13 & 05/14 > K normalized. Will continue HD mgmt of lytes.
- HD on MWF schedule - HD later today
- Continue to monitor BMP
- 48oz fluid restriction, K and Na restriction on HD
- Holding lasix
- Renal following, appreciate recs
#Hypotension, resolved
Hypotension on admission, possibly from shock (cardiogenic vs. septic) requiring dobutamine/dopamine on admission, but since resolved off pressors. Likely just 2/2 atenolol accumulation in s/o renal failure for renally cleared medication, which also
contributed to his bradycardia.
- Continue to monitor
#Chronic
#Cigarette use - dependency counselor cessation
#Obstructive sleep apnea - CPAP at night
#Global
- DVT ppx: eliquis
- Code: full
- Diet: 48oz fluid restriction, Na & K restricted renal diet
- Dispo: pending stabilization of clinical status
Anticipated Discharge: > 48 hours
Subjective/Interval History
-
Date of Service: May 16, 2025
Patient comfortable, interactive this morning. States that the miller head just came in and told him that he was going to go for permanent pacemaker placement this morning. Somewhat nervous about it. Otherwise no complaints.
Objective Data
-
Labs:
Laboratory Results
05/16/25
03:29
WBC 6.4
Hgb 9.4 L
Hct 28.5 L
Plt Count 226
Sodium 129 L
Potassium 4.1
Chloride 96 L
Carbon Dioxide 21 L
BUN 47 H
Creatinine 6.4 H*
Glucose 93
Calcium 8.0 L
Total Bilirubin 1.2
AST 19
ALT 21
Alkaline Phosphatase 194 H
Vital Signs:
Vital Signs
Temp Pulse Resp BP Pulse Ox
98.6 F 60 30 121/55 97
05/16/25 03:08 05/16/25 06:00 05/16/25 06:00 05/16/25 06:00 05/16/25 06:00
I&O
05/15/25 05/16/25 05/17/25
06:59 06:59 06:59
Intake Total 630 / 630 40 / 40
Balance 630 / 630 40 / 40
Review of Systems
-
History Source: Patient
Constitutional: Reports No Symptoms
EENT: Reports Runny Nose
Respiratory: Reports No Symptoms
Cardiac: Reports No Symptoms
Abdomen/GI: Reports No Symptoms
Musculoskeletal: Reports No Symptoms
Skin: Reports No Symptoms
Physical Exam
-
General: Well Developed, Well Nourished and No Apparent Distress
HEENT: Normocephalic and Atraumatic
Respiratory: Clear to Auscultation and Non Labored Respirations
Cardiac: Regular Rhythm and Other (PICC line in place; temporary pacer in place; IJ HD cath)
GI: Soft, Nontender and Nondistended
Musculoskeletal: Other (Chronic venous static lower extremity edema bilaterally with woody skin changes and erythema)
Skin: Rash (See description above regarding bilateral lower extremities, bandaging in place; patient also with some residual dusky vasculitic macules on bilateral anterior lower extremities)
Neuro: Awake, Alert and Oriented
Psych: Anxious
Data Reviewed
-
Total Time Spent with Patient (in minutes): 10
Critical Care Time (in minutes): 35
Medical Tests (Nuc Med, Echo etc): Report Reviewed by me
Labs: Labs Reviewed by me
[2025-05-16] MEDS: DESENEX/MITRAZOL/ZEASORB 1 APPLIC TOPICAL ×2 (07:42→20:55)
[2025-05-16] MEDS: MUCINEX 600 MG PO ×2 (07:43→19:58)
[2025-05-16] MEDS: HEPARIN 5000 UNITS SC ×2 (07:43→20:56)
[2025-05-16] MEDS: RENVELA PO ×3 (07:43→11:23)
[2025-05-16] MEDS: HYDROPHOR 1 APPLIC TOPICAL (07:44)
--- NOTE | 2025-05-16 07:53 | W.PN.INTV ---
Today's Communication / Plan
Recommendations
Planned PPM today after hemodialysis
Assessment
-
Impression
54-year-old male with PMH of paroxysmal atrial fibrillation on Eliquis, COPD, NAHUM is being admitted to the CV ICU for management of sinus bradycardia secondary to complete heart block s/p temporary Venous pacemaker implantation.
Recently he was hospitalized at [facility] on 04/17/2025 for right 3rd toe osteomyelitis. He developed broad skin allergic reaction secondary to piperacillin. Additionally his hospital course was complicated by nephrotoxicity 2/2
vancomycin. Renal biopsy showed infectious glomerulonephritis. Since then he was on hemodialysis Mon/mon/Mon. He was diagnosed with endocarditis and PICC line was placed on the right arm for treatment with daptomycin and linezolid. He is on
daptomycin to be continued for 42 days last day of antibiotics June 01, 2025
Plan
Symptomatic bradycardia 2/2 complete heart block
- Loss of consciousness at home, HR 30s
- Cardiology on board
- EKG : junctional then idioventricular rhythm at 20 to 30 bpm
- On 05/13/2025 s/p temporary venous pacemaker placement
- Currently dopamine/dobutamine infusion off, prn
- Today he is asymptomatic, pacing, P60
- dc atenolol
- Echo
----The aortic valve is abnormal. Suspect for vegetation. There is moderate aortic regurgitation.
----The mitral valve is thickened. No definite vegetation is seen. Mild to moderate mitral regurgitation
- BRENDAN 05/14/2025
----EF 55 to 60%, thickened trileaflet aortic valve, 6 mm mobile echodensity seen on the ventricular side of the valve concern for vegetation. Endocarditis.
- He received 5 mg IV glucagon
- Yesterday his TPM rate was decreased to 50 BPM without significant response.
- Plan Esperanza PPM placement today after hemodialysis
Paroxysmal atrial fibrillation
- hold Eliquis for possible cardiac procedure
- Xarelto was switched to Eliquis due to SANDY
- Last dose of Eliquis was 05/13
Endocarditis
- linezolid was discontinued due to itching and hives, continue daptomycin
- blood cx -NG in 48 hours
- Plan PPM placement today
- ID recs Esperanza pacer to decrease infection risk
History of right third toe osteomyelitis s/p partial bone resection
- Continue antibiotics
- Wound consult
Hypotension
- Hold atenolol, furosemide
- Monitor BP
Hyperkalemia
- He has been taking 20 mg potassium supplement daily - dc
- He was given insulin regular 5 U, IV calcium gluconate, dextrose 50%water, Lokelma
- Follow BMP
Acute kidney injury 2/2 vancomycin nephrotoxicity
- History of skin vasculitis, rash and renal failure 2/2 vancomycin and piperacillin/tazobactam
- Recent renal biopsy, infectious glomerulonephritis
- Hemodialysis Mon/mon/Mon
- Hemodialysis today
- Nephrology on board
- 48oz fluid restriction, K and Na restriction on HD
- d/c lasix
Obstructive sleep apnea
- Uses CPAP at night
COPD
- Quit smoking since last hospitalization
Alcohol use disorder
- 2-3 beers daily
Full code
DVT prophylaxis: SQ heparin (Hold Eliquis)
Subjective Dataa
Subjective Data
Date of Service:
Date of Service: May 16, 2025
Subjective:
He is sitting on the chair complaining about not being able to find a comfortable spot because of his tailbone pain. Yesterday he walked in the hallway without significant shortness of breath. He had a BM yesterday still complains about feeling
gassy. He denies shortness of breath, chest pain, palpitations and lightheadedness.
Objective Data
Data Reviewed
Vital Signs / I&O / Oxygen:
Vital Signs
Temp Pulse Resp BP Pulse Ox
98.6 F 60 30 121/55 97
05/16/25 03:08 05/16/25 06:00 05/16/25 06:00 05/16/25 06:00 05/16/25 06:00
Intake and Output
05/15/25 05/16/25 05/17/25
06:59 06:59 06:59
Intake Total 630 / 630 40 / 40
Balance 630 / 630 40 / 40
SaO2 97
Nasal Cannula flow liters per 2
minute
Physical Exam
General: Comfortable
HEENT: Normocephalic and Anicteric
Cardiovascular: S1-S2 and Irregular Rhythm
Respiratory: Clear
GI: Soft, Non Distended and Non Tender
Neurology: AO x 3 and No Motor Deficits
Skin: Warm, Dry and Rash (Bilateral discoloration on lower extremity)
Labs/Micro/Reports
Lab Data
05/16/25 03:29
05/16/25 03:29
Microbiology
05/13/25 12:11 Blood/Venous Blood Culture - Preliminary
No Growth in 48 hours- Final report to follow
05/13/25 12:02 Blood/Venous Blood Culture - Preliminary
No Growth in 48 hours- Final report to follow
--- NOTE | 2025-05-16 08:46 | W.PN.CD ---
Today's Communication / Plan
-
Plan for HD and PPM today
Impression / Plan
-
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
requiring debridement at [facility] as well as medically managed infectious endocarditis admitted with bradycardia with heart rates in the 30s associated with loss of consciousness at home while sitting in the chair (witnessed by )
and continued altered mental status.
Primary Rolling Mill Plugger: Dr. Matamoros
#Symptomatic bradycardia/complete heart block:
-Acute, symptomatic.
-Patient with junctional, then idioventricular rhythm at 20-30 bpm; had loss of consciousness at home.
-Temporary wire placed, patient is 100% V-paced at 60 bpm.
-Ambulate to assess rate response.
-Dependent on TVP - plan for permanent PPM
- ID has cleared pt for PPM implant.
- No systemic infection. Cleared infection - on daptomycin.
#PAF (on Eliquis):
-Currently in AF with complete heart block.
-Rate supported by TPM. Holding atenolol.
-Discontinue atenolol; conveyor monitor in ICU.
-CHADS2-Vasc = 1 (HTN).
-Patient missed apixaban for 2 nights prior to admission. Currently off of anticoagulation.
#Endocarditis:
-Acute.
-Previously on antibiotics for medical management.
-Daptomycin 1250 mg q48h. Patient had adverse reactions to piperacillin-tazobactam, vancomycin and linezolid.
-Repeat echocardiogram shows abnormal AV with possible endocarditis and mitral valve thickening but no obvious vegetation.
-BCx - No growth in 24 hours (x2).
#Hypotension:
-Acute, multifactorial; improving.
-Possibly related to sepsis vs. bradycardia.
-Titrate pressors/inotropes to keep MAP > 65 mmHg.
#ESRD/HD:
-New diagnosis as of [facility] admission.
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
-Nephrology consulted.
-CONTENT PRODUCTION SPECIALIST - planned for today.
#Foot osteomyelitis:
-S/P third toe partial amputation/debridement.
-Management as per primary team.
#Chronic continued cigarette use:
- Counseled on the importance of smoking cessation.
Critical Care Time = 32 minutes.
Subjective/Interval History:
Plan for HD and PPM today
DATA:
TPM, 05/13/2025:
CONCLUSION: Successful placement of a temporary venous pacemaker from the right internal jugular vein.
Transthoracic Echocardiogram, 05/13/2025:
SUMMARY
1. Known aortic valve endocarditis.
2. The left ventricle is mildly dilated. Normal LV systolic function.
3. The aortic valve is abnormal. I suspect that there is a vegetation. There is moderate aortic regurgitation.
4. The mitral valve is thickened. No definite vegetation is seen. Mild to moderate mitral regurgitation.
5. No prior echocardiogram available for comparison. The medical records commented on known aortic valve vegetation but without significant aortic regurgitation.
BRENDAN, 05/14/2025:
SUMMARY
1. Normal left ventricular systolic function.
2. Estimate ejection fraction 55 to 60%.
3. Thickened trileaflet aortic valve with mobile echodensity as described below. Overall appearance is consistent with vegetation.
4. Mild to moderate aortic regurgitation.
5. Moderate mitral regurgitation.
6. Mild to moderate tricuspid regurgitation.
Physical Exam
Vital Signs/Labs
Vital Signs
Temp Pulse Resp BP Pulse Ox
98.6 F 60 30 121/55 97
05/16/25 03:08 05/16/25 06:00 05/16/25 06:00 05/16/25 06:00 05/16/25 06:00
05/15/25 05/16/25 05/17/25
06:59 06:59 06:59
Actual Weight 116.7 kg 117 kg
05/16/25 03:29
05/16/25 03:29
PT 25.5 Sec (11.4-14.6) H 05/13/25 15:33
PT Cancelled 05/13/25 15:33
INR 2.30 05/13/25 15:33
INR Cancelled 05/13/25 15:33
APTT 41.0 Sec (23.4-35.0) H 05/13/25 15:33
TSH Cancelled 05/13/25 15:40
Physical Exam
Constitutional: No acute distress and Comfortable
EENT: Anicteric and Moist mucous membranes
Cardiovascular: Rhythm & rate is regular, Pedal edema present, JVD present and Systolic murmur present
Respiratory: Respiratory effort normal, Wheeze Absent and Crackles Absent
GI: Soft, Non tender and Normal bowel sounds
Neuro/Psych: Alert, Oriented and AO x 3
Data Reviewed
-
Date of Service: May 16, 2025
Medical Decision Making: Reviewed Test Results, Test Interpretation and Review of Case with other Provider
EKG: Tracing Personally Visualized and interpreted
Echo: Report Reviewed by me
X-Ray/CT/US/MRI/NUC/PET: Image Personally Visualized and interpreted
Labs: Labs Reviewed by me
Old Records: Reviewed
--- NOTE | 2025-05-16 09:44 | CM ---
Patient seen at bedside in ICU with physicians. Patient states that he is for HD today and permanent pacer placement. Patient stated that he had had IV antibiotics at home prior to admission. Patient stated he had had VN in the past but is uncertain
which VN and requested CM call to patient . Patient stated that he had gone 3 x to [facility] at [facility] prior to admission to . CM will continue to follow for discharge planning needs.
Plan; Confirm ability to return to HD/[facility] and watch for VN/SNF recommendations
--- NOTE | 2025-05-16 10:13 | W.PN.ID1 ---
Date of Service
Date of Service: May 16, 2025
Today's Communication
See below.
Assessment / Plan
# Complete AVB/bradycardia s/p temporary venous pacer placement 05/13/25
. For permanent PPM placement today
# Recent AV vegetation by TTE with mild AI, neg blood cx's, neg Bartonella/Q fever serologies, MRI brain neg, at [facility], on daptomycin till 06/01/24
. TTE here moderate aortic regurgitation
. 05/14 BRENDAN: Thickened trileaflet aortic valve there is a mobile echodensity seen on the ventricular side of the valve which appears to measure up to 6 mm raising concern for vegetation. Mild to moderate aortic regurgitation.
# Recent R 3rd toe osteomyelitis status post partial bone resection at [facility] 04/21/25, cx Corynebacterium. On Daptomycin till 06/01/24
# SANDY-> ESRD on HD since 03/2025 at [facility]. Renal bx 'infectious glomerulonephritis'.
Possibly due to Vancomycin +/- Zosyn vs embolic
# Recent skin vasculitis on Vanco/Zosyn combo at [facility]
- Blood cx's, neg to date
- While in hospital, Continue Daptomycin 1250 mg q48 till 06/01/24. CK normal
For outpatient, transition to Daptomycin 1,250mg/1,250mg/1500mg M/W/F after dialysis via PICC through 06/01/24.
- Follow weekly CK, CBC, CMP while on Daptomycin.
- Infusion sheet submitted to Detective And Intelligence Analyst.
# Other PMHX
COPD
Hypertension
Paroxysmal atrial fibrillation
Dyslipidemia
Superior mesenteric artery stenosis
Venous insufficiency
Sleep apnea
Testicular torsion repair as a teenager
Chief Complaint
-: Other (heart block, toe ostoe, IE)
Subjective / Review of Systems
Waiting for PPM placement after HD today.
Vital Signs / Physical Exam
Vital Signs
Vital Signs
Temp Pulse Resp BP Pulse Ox
98.6 F 60 30 121/55 97
05/16/25 03:08 05/16/25 06:00 05/16/25 06:00 05/16/25 06:00 05/16/25 06:00
Physical Exam
Constitutional: No Acute Distress and Comfortable
Cardiovascular: Regular Rate and S1/S2
Pulmonary: Clear
Gastrointestinal: Soft, Non Tender, Non Distended and Normal Bowel Sounds
Genito-Urinary: Negative CVA Tenderness
Extremities: Edema (BLE)
Neurological: AO x 3
Lines: PICC (RUE intact), HD Cath (RCW no erythema) and Other (RIJ temp venous pacer intact)
Objective Data
Lab Data
Lab Results
05/16/25 03:29
05/16/25 03:29
PT 25.5 Sec (11.4-14.6) H 05/13/25 15:33
PT Cancelled 05/13/25 15:33
INR 2.30 05/13/25 15:33
INR Cancelled 05/13/25 15:33
APTT 41.0 Sec (23.4-35.0) H 05/13/25 15:33
Estimated Creat Clear 18 ml/min 05/16/25 03:29
Lactic Acid Cancelled 05/13/25 19:29
Total Bilirubin 1.2 mg/dl (0.2-1.3) 05/16/25 03:29
AST 19 U/L (17-59) 05/16/25 03:29
ALT 21 U/L (0-50) 05/16/25 03:29
Alkaline Phosphatase 194 U/L (38-126) H 05/16/25 03:29
Most recent labs reviewed.
Micro Results:
05/13/25 12:11 Blood Culture - Preliminary
Blood/Venous No Growth in 48 hours- Final report to follow
05/13/25 12:02 Blood Culture - Preliminary
Blood/Venous No Growth in 48 hours- Final report to follow
--- NOTE | 2025-05-16 11:28 | CM ---
called [facility] [phone] spoke to nurse-confirmed he has a chair MWF @ 530 am. they are aware he is in the hospital, and are awaiting a from call with dc date when known and would like dc summary and add'l HD notes faxed
to [phone]---current clinicals and HD notes faxed as requested 05/15.
also spoke to [facility] intake on phone- [phone]. they are aware of pts hospitalization and that he will resume iv antibx after dc. they are requesting a call with dc information and fax [phone] with new IV Med order (placed on chart by ID
today), new PICC info if different.
--- NOTE | 2025-05-16 13:20 | PTCARENOTE ---
pt awake and alert , V paced on monitor , pt has temporary pacemaker VVI rate set at 60 , blood pressure adequate , oob in chair for 3 hours , uses walker for assistance , NPO pt sent to syrup machine laborer for PPM at 1215, pt is scheduled to recieve HD today
post PPM placement , pt and updated on plan of care and condition
--- NOTE | 2025-05-16 13:45 | PTCARENOTE ---
pt to transfer to IVU level of care post PPM placement , report given to receiving RN
--- NOTE | 2025-05-16 14:02 | ITS.CL.PACE ---
Humane Officer - Pacemaker Implant
Pacemaker Implant
Procedure Report:
Dual chamber LBB pacing PPM implant
Conduction system pacing Permanent Pacemaker Placement:
54 yrs old man with renal failure, endocarditis s/p antibiotics with recent osteomyelitis s/p bone resection and hx of paroxysmal atrial fibrillation presetned with complete heart block s/p temp pacing wireplacement (05/13/25) and is cleared for any
infection and presented now for dual chamber PPM.
Indications:
Complete heart block
Date of the Procedure:
05/16/25
Pre-Operative Diagnosis: High degree AV block
Post-Operative Diagnosis: High degree AV block
Procedure Performed: Conduction system pacing permanent pacemaker
Performing Physician:
Vani Melvin MD
Anesthesia:
See anesthesia report.
Detailed Description of the Procedure:
The patient was identified using hospital identification and informed consent obtained for the procedure. The risks were explained to the patient and the family including, but not limited to: Bleeding, infection, arrhythmia, stroke,
vascular/cardiac/lung puncture, surgery, pacemaker dependency/device malfunction. All questions were answered.
A surgical pause was performed in accordance with hospital regulations. Anesthesia service provided sedation as reported separately. Antibiotics administered IV for risk of bacterial colonization. After obtaining informed and written consent, the
patient was brought to the electrophysiology laboratory.
The initial rhythm was paced rhythm with underlying atrial fibrillation.
The procedure site was meticulously prepared with surgical scrub and allowed to dry with no pooling. Sterile draping was applied to cover the procedure site. The image intensifier was draped with sterile bag and positioned over the patient.
A surgical pause and time out was performed immediately prior to the procedure with review of her medical history, recent labs, allergies and medications with site of procedure identified and consent noted in the chart. Antibiotics pre operatively
given. All team members concurred.
The left infraclavicular region was prepped and draped in the usual sterile fashion. Local anesthesia was administered subcutaneously using 1% lidocaine / Bupivacaine. The left cephalic vein cutdown was performed with an incision at the
delto-pectoral groove, and vascular sheath was introduced for lead access.
A subcutaneous pocket was created with blunt dissection and use of electrocautery. Hemostasis was excellent.
The guide wire was advanced to the RA and was advanced to the RV. The preformed curved long hemostatic peel away HIS sheath was advanced into the RV cavity. A left bundle pacing wire was advanced into the sheath to the tip with ventricular signals
noted with unipolar manner. The cardiac anatomy was significant rotated.
The HIS location was identified under guidance of the flouroscopy and the pacing wire signals. The sheath with the pacing lead was moved deeper into the RV cavity on the septum at a more inferior and distal to the HIS signals.
Once adequate signals were noted on the electrograms of the pacing lead in the sheath with W pattern signals on the RV septum, the lead was advanced and clockwise turns were done under fluoroscopic guidance. The septum was engaged and the lead was
paced intermittently after every 2-3 turns. The Impedance of the lead was measured that remained stable around 800 Ohm and the lead was not able to advance into the septum. The ventricualr capture was monitored throughout and the captures gradually
changed from RV pacing to non-selective pacing to LBB pacing with small R wave on V1 morphology.
The long guiding sheath was cut and removed from the RV without change in lead position, impedance, sensing, or capture. The lead was sutured to the underlying pectoralis fascia with 2-0 Ti-Cron stitches.
Then the attention was given to atrial lead. A passive babatunde lead was placed in the RA and into the RAA. The AF waves had good atrial signal without R wave and excellent impedance.
The leads were attached to the pulse generator in standard configuration with acceptable sensing and threshold parameters. The pocket was irrigated with antibiotic solution; the pocket was inspected with no active bleeding noted. The device and the
leads were placed in the pocket.
A Tyrx pouch was installed.
A flow seal was deposited in the pocket.
Deep subcutaneous tissues were closed with 2-0 V loc sutures; intermediate subcutaneous tissue was reopposed using a running 2-0 V loc suture, and the dermis was reopposed using a running 4-0 Biosyn subcuticular suture.
A pressure dressing was applied. Sponge counts / sharp counts were appropriate.
Procedure End:
The procedure was tolerated well. Aquacel bandaged was applied.
Estimated Blood loss:
5 cc
Specimens Removed:
No cultures and no specimens were obtained. No intraoperative pathology was identified.
Urine output:
None
Packs / Drains/ Tubes:
None
Instrument / Sponge Count Correct:
Yes
Flouro time:
2.0min / 2.5Gycm2
Complications of the Procedure:
None
Condition of Patient at Time of Transfer:
Hemodynamically stable with no neurological or vascular compromise.
Device information:�
Generator: [email or web address]; Model: W1DR01; Serial # [id number]�
RA pacing lead: [employer]; Model: 4574-53; Serial # [id number]
Measured data on the RV lead was sensing of 0.5 mV of Fib waves, impedance of 513 ohms and threshold not tested. �
RV LBB pacing lead: Medtronic; Model: 3830-69; Serial # [id number]
Measured data on the RV lead was sensing of 13mV, impedance of 779 ohms and threshold of 0.5 V at 0.4ms�
PROGRAMMING PARAMETERS:�
Marcelo parameter settings were DDDR 60-130 �
Paced AV interval: 180ms
Sensed AV interval: 150 ms.
Rate Adaptive A-V Interval: off
Mode switch ON
Summary:
Successful implantation of MRI compatible dual chamber conduction system pacing permanent pacemaker.
Results/Recommendations:
-Please follow up CXR�
1. Please provide patient with adequate pain control�
Instructions to be given to patient:�
- Please follow up with [facility] at [address] [place] [address] ([phone]) to get your wound checked in 2 weeks of your discharge. Then follow with
- Do not wet incision site until after it is evaluated at cardiology clinic. No baths or showers until then. Sponge baths / showers are OK but dab dry the dressing after it is wet.�
- Allow 'steri strips' to fall off on their own�
- Do not lift left elbow above shoulder, particularly with sudden jerking movements, for 1 month�
- Do not lift anything weighing more than 5 pounds with the left arm for 1 month�
- If you notice any fevers, shortness of breath, lightheadedness, chest pain, or worsening swelling in the wound site, please contact the arrhythmia clinic, contact your computer designer, or present to the hospital for evaluation.�
Vani Melvin MD
Electrophysiology
--- NOTE | 2025-05-16 14:45 | PTCARENOTE ---
Patient admitted to IVU from metallurgical laboratory assistant. VSS. Right chest wall dressing intact with pressure dressing and sling. Right toe bandage Intact with boot. Right PICC intact. Right neck dressing CDI. Legs dry, scabbed red and brown, pedal pulses weak.
V-paced HR 60, BP 131/62. Has some intermittens gas discomfort, reports its chronic. Chronic back pain, repositioned for comfort. investment trader at bedside. Water given
[2025-05-16] MEDS: MYLICON 80 MG PO ×2 (14:55→19:59)
--- NOTE | 2025-05-16 15:39 | W.PN.NEPH.HD ---
Assessment
-
seen on HD> no complaints. VSS, access ok
s/p PPM 05/16
Progress Note - Hemodialysis
-
Date of Service: May 16, 2025
Duration: 30 minutes and 3 hours
Potassium Bath: 2
Calcium Bath: 2.5
Opti-Dialyzer: 160
Ultrafiltration: Other (2kg)
Blood Flow: 400
Dialysate Flow: 600
Heparin: 0
EPO: 6000 units
[2025-05-16] MEDS: FLEXBUMIN 25% FOR HEMODIALYSIS 12.5 GRAMS IV (16:15)
[2025-05-16] MEDS: RETACRIT 6000 UNITS IV (16:19)
[2025-05-16] MEDS: RENVELA 2400 MG PO (19:45)
[2025-05-16] MEDS: CUBICIN 25 MG IV (19:57)
[2025-05-16] MEDS: TYLENOL 650 MG PO (19:58)
[2025-05-16] MEDS: ANCEF 5 IV (20:55)
--- NOTE | 2025-05-17 00:53 | PTCARENOTE ---
Pt. rec'd AAOx3, VSS, V-paced on the monitor. Left upper chest pacer dressing CDI without drainage or hematoma, radial pulse normal. Medicated with Tylenol for incisional discomfort with adequate results obtained. After HD finished pt. able to sit
and stand at bedside with assist x 1. Right foot dressing CDI, boot on. CHG wipes completed. Pt. currently sleeping.
[2025-05-17 03:32] VITALS: BP 124/50
[2025-05-17] MEDS: TYLENOL 650 MG PO (04:02)
[2025-05-17] MEDS: ANCEF 5 IV (04:02)
[2025-05-17 04:05] VITALS: BMI 31.3
[2025-05-17 04:12] LABS: Hematocrit 28.0 % (39.0-52.0); Hemoglobin 9.4 g/dL (13.0-18.0); Mean Corp Hgb Conc. 33.6 g/dL (33.0-37.0); Mean Corpuscular Volume 92.7 fL (80.0-94.0); Nucleated Red Blood Cells % 0 % (-); Platelet Count 231 10^3/uL (130-400); Red Cell Dist. Width 15.9 % (11.5-14.5)
[2025-05-17 04:42] LABS: ALT (SGPT) 16 U/L (0-50); AST (SGOT) 18 U/L (17-59); Albumin 3.0 g/dl (3.5-5.0); Alkaline Phosphatase 212 U/L (38-126); Blood Urea Nitrogen 36 mg/dl (9-20); Calcium 8.4 mg/dl (8.4-10.2); Carbon Dioxide 24 mmol/L (22-30); Chloride 96 mmol/L (98-107); Estimated Creatinine Clearance 20 ml/min; Glucose 92 mg/dl (70-99); Magnesium 2.1 mg/dl (1.6-2.3); Potassium 4.2 mmol/L (3.5-5.1); Sodium 131 mmol/L (135-145); Total Protein 6.8 g/dl (6.3-8.2); eGFR 10.78
--- NOTE | 2025-05-17 05:35 | W.PN.CD ---
Today's Communication / Plan
-
Continue antibiotics for prolonged duration (per ID).
Metoprolol succinate 25 mg daily.
Patient was previously weight bearing with his prosthetic boot and no specific weight bearing restrictions.
Reconsult PT regarding disposition.
Discharge planning.
Impression / Plan
-
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
requiring debridement at [facility] as well as medically managed infectious endocarditis admitted with bradycardia with heart rates in the 30s associated with loss of consciousness at home while sitting in the chair (witnessed by )
and continued altered mental status.
Primary Mortgage Servicing Specialist: Dr. Matamoros
#Symptomatic bradycardia/complete heart block:
-Acute, symptomatic.
-Patient with junctional, then idioventricular rhythm at 20-30 bpm; had loss of consciousness at home.
-S/P PPM on 05/16/2025.
#PAF (on Eliquis):
-Currently in AF with complete heart block.
-Rate now supported by PPM. Start metoprolol succinate 25 mg daily.
-CHADS2-Vasc = 1 (HTN). Currently off of anticoagulation.
#Endocarditis:
-Acute.
-Previously on antibiotics for medical management.
-Patient had adverse reactions to piperacillin-tazobactam, vancomycin and linezolid.
-Repeat echocardiogram shows AV endocarditis and mitral valve thickening but no obvious vegetation.
-BRENDAN confirmed AV IE, r/o abscess.
-BCx:
05/13/2025 - Negative x2.
-Daptomycin 1250 mg q48h per ID.
#Hypotension:
-Acute, multifactorial; resolved.
#ESRD/HD:
-New diagnosis as of [facility] admission.
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
-Nephrology consulted.
-IMMIGRATION SERVICES OFFICER - planned for today.
#Foot osteomyelitis:
-S/P third toe partial amputation/debridement.
-Management as per primary team.
-PT notes question weight bearing status.
-Patient reports that he was ambulating with his boot with the approval of the operating surgeon prior to this admission.
-Reconsult PT to assist with disposition.
#Chronic continued cigarette use:
-Counseled on the importance of smoking cessation.
#Dispo
-IVU status.
-Discharge planning.
Subjective/Interval History:
PPM yesterday.
Hypotension resolved.
Feels well.
DATA:
TPM, 05/13/2025:
CONCLUSION: Successful placement of a temporary venous pacemaker from the right internal jugular vein.
Transthoracic Echocardiogram, 05/13/2025:
SUMMARY
1. Known aortic valve endocarditis.
2. The left ventricle is mildly dilated. Normal LV systolic function.
3. The aortic valve is abnormal. I suspect that there is a vegetation. There is moderate aortic regurgitation.
4. The mitral valve is thickened. No definite vegetation is seen. Mild to moderate mitral regurgitation.
5. No prior echocardiogram available for comparison. The medical records commented on known aortic valve vegetation but without significant aortic regurgitation.
BRENDAN, 05/14/2025:
SUMMARY
1. Normal left ventricular systolic function.
2. Estimate ejection fraction 55 to 60%.
3. Thickened trileaflet aortic valve with mobile echodensity as described below. Overall appearance is consistent with vegetation.
4. Mild to moderate aortic regurgitation.
5. Moderate mitral regurgitation.
6. Mild to moderate tricuspid regurgitation.
PPM, 05/16/2025:
Generator: [employer]; Model: W1DR01; Serial # [id number]
RA pacing lead: Medtronic; Model: 4574-53; Serial # [id number]
RV LBB pacing lead: Medtronic; Model: 3830-69; Serial # [id number]
Physical Exam
Vital Signs/Labs
Vital Signs
Temp Pulse Resp BP Pulse Ox
37.0 C 60 16 124/50 97
05/17/25 03:33 05/17/25 04:00 05/17/25 03:33 05/17/25 03:32 05/17/25 03:33
05/15/25 05/16/25 05/17/25
11:59 11:59 11:59
Actual Weight 116.7 kg 117 kg 116.6 kg
05/17/25 03:44
05/17/25 03:44
PT 25.5 Sec (11.4-14.6) H 05/13/25 15:33
PT Cancelled 05/13/25 15:33
INR 2.30 05/13/25 15:33
INR Cancelled 05/13/25 15:33
APTT 41.0 Sec (23.4-35.0) H 05/13/25 15:33
Magnesium 2.1 mg/dl (1.6-2.3) 05/17/25 03:44
TSH Cancelled 05/13/25 15:40
Physical Exam
Constitutional: No acute distress and Comfortable
EENT: Anicteric and Moist mucous membranes
Cardiovascular: Rhythm & rate is regular, Pedal edema is absent, JVD pressure is normal, S1S2 is normal and Murmur/rub/gallop absent
Respiratory: Respiratory effort normal, Lungs clear to auscul., Wheeze Absent, Crackles Absent and Rhonchi Absent
GI: Soft, Distention absent, Flat, Non tender and Normal bowel sounds
Neuro/Psych: AO x 3
Other: Cardiac Device Site (Under bandage.)
Data Reviewed
-
Date of Service: May 17, 2025
Medical Decision Making: Reviewed Test Results, Independent Historian Assessment and Test Interpretation
EKG: Tracing Personally Visualized and interpreted and Report Reviewed by me
Echo: Tracing Personally Visualized and interpreted and Report Reviewed by me
X-Ray/CT/US/MRI/NUC/PET: Image Personally Visualized and interpreted and Report Reviewed by me
Medical Tests (PFT, Pathology etc): Image Personally Visualized and interpreted and Report Reviewed by me
Labs: Labs Reviewed by me
Old Records: Reviewed
--- NOTE | 2025-05-17 07:09 | W.PN.HOSP.TC ---
Addendum entered and electronically signed by Dinah Kenyon MD 05/17/25 13:08:
I saw and evaluated the patient independently. I reviewed and discussed the resident�s note and agree with findings and plan as documented by Dr. Stoner.
GENERAL: well developed, well nourished, male in no apparent distress
HEENT: NC/AT
HEART: regular rate and rhythm, +S1, +S2
LUNGS : clear to auscultation bilaterally
ABDOM: soft, nontender, nondistended, + bowel sounds
EXT: no cyanosis, clubbing-- edema bilateral LE with vasculitis rash on both legs--left arm in sling (pacer placed anterior left chest wall)
NEUROLOGIC: grossly intact
Symptomatic bradycardia with syncope s/p temporary venous pacemaker for complete heart block--s/p atropine in the field--had BRENDAN with no progression of the endocarditis--apprec cards--pressors (levophed) off--hold all AV blocking agents--cont
Eliquis-- s/p permanent pacer 05/16/25--OK for d/c
shock physiology--required pressors--unclear if septic (doubt with neg blood cultures and already on abx for endocarditis), cardiogenic (possible due to CHB and temp pacer), vs atenolol effects in pt on HD--resolved
Hx paroxysmal A-fib- Continue eliquis
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 Pt had been d/c on IV daptomycin for 6wk course, non-op mgmt--BRENDAN without progression--apprec ID--cont IV dapto MWF post HD as per ID 1250mg M,
1250mg W, and 1500mg F through 06/01/25--blood cultures negative
Hx R toe osteomyelitis s/p surgical debridement--Toe cx at [place] grew corynebacterium, IV dapto plan as above. (Tried linezolid, pt developed itching/hives & it was dc'd)--apprec wound care-
Renal failure due to vancomycin vs. infectious nephrotoxicity on HD with hyperkalemia--volume and electrolytes managed by dialysis MWF- 48oz fluid restriction, K and Na restriction on HD- Holding lasix --apprec renal
Tobacco use--Cigarette use - service counselor cessation
Obstructive sleep apnea - CPAP at night
DVT proph-- eliquis
Code status-- full
Original Note:
Today's Communication/Plan
-
- Discharge today, pending PT clearance
- Continue MWF HD & IV daptomycin
Assessment / Plan
Assessment / Plan
54-year-old M with a history of paroxysmal A-fib (on Eliquis), T2DM, essential hypertension, ongoing cigarette use, renal failure on HD (as of 3 weeks ago, 2/2 vancomycin toxicity vs. infectious/embolic), and recent admission to [facility] for right foot osteomyelitis, at which point he was found to have endocarditis, who presented following episode of LOC/unresponsiveness x3 while sitting at home, found to have bradycardia, given temporary pacemaker, HD, & IV abx, now s/p
permanent pacemaker placement.
#Symptomatic bradycardia s/p permanent pacemaker
#Hx paroxysmal A-fib
Pt presented with syncopal episodes, found to have complete AV block, s/p atropine in the field, s/p emergency placement of temporary venous pacemaker (R IJ) on 05/13. Likely triggered by known infectious vegetation on AV in s/o atenolol toxicity
2/2 renal failure. Per cards, pt not candidate for permanent pacer (maybe micra) on 05/13. TTE 05/13 demonstrated AV endocarditis, AV regurgitation, mild dilation of LV. BRENDAN 05/14 with thickened AV with mobile echodensity c/w vegetation; normal LVEF
55-60%; mild-mod AR, MR, TR. S/p 5mg glucagon x2 while holding atenlolol. Permanent pacemaker placed 05/16.
Today - HR 60, paced, pt asx.
- Continue metoprolol succinate 25mg daily (started s/p PPM placement)
- Cardiology following, appreciate recs
- Holding eliquis per cards
- PT consult for dispo planning
#Infectious endocarditis
Thought to be 2/2 corynebacterium, found + from osteomyelitis cx at [place] ~3 wk prior. Pt had been on IV daptomycin for 6wk course, non-op mgmt. Had planned to f/u with OP student assistant but had not yet. BRENDAN 05/14 confirmed AV vegetation.
Blood cx w no growth 48hr. Per cards, will continue non-op mgmt given aseptic in abx.
- Per ID:
- While in hospital, continue Daptomycin 1,250 mg q48 through 06/01/24
- For outpatient, transition to Daptomycin 1,250mg/1,250mg/1500mg M// after dialysis via PICC through 06/01/24
- Monitor CK while on dapto
- ID following, appreciate recs
#Hx R toe osteomyelitis s/p surgical debridement
Toe cx at [place] grew corynebacterium, IV dapto plan as above. (Tried linezolid, pt developed itching/hives & it was dc'd). R foot with clean bandaging, being managed by wound care.
- Wound care following
- Continue IV daptomycin through 06/01 as above
#Renal failure 2/2 vancomycin vs. infection-related nephrotoxicity on HD
#Hyperkalemia, improved s/p HD
Received 2 HD treatments while hospitalized about 3 weeks ago, then was receiving HD [facility] on Monday, Monday, and Monday. Renal bx read as glomerular and tubular damage from vancomycin and infectious glomerulonephritis.
Renal failure followed skin vasculitic rash following vancomycin. R tunneled IJ catheter placed Mar 2025. K elevated 6.4 on presentation; s/p lokelma, IV Ca, insulin & dextrose, & HD 05/13 & 05/14 > K normalized. Will continue HD mgmt of lytes.
- HD on MWF schedule
- Continue to monitor BMP
- 48oz fluid restriction, K and Na restriction on HD
- Holding lasix
- Renal following, appreciate recs
#Hypotension, resolved
Hypotension on admission, possibly from shock (cardiogenic vs. septic) requiring dobutamine/dopamine on admission, but since resolved off pressors. Likely just 2/2 atenolol accumulation in s/o renal failure for renally cleared medication, which also
contributed to his bradycardia.
- Continue to monitor
#Chronic
#Cigarette use - service counselor cessation
#Obstructive sleep apnea - CPAP at night
#Global
- DVT ppx: sq heparin
- Code: full
- Diet: 48oz fluid restriction, Na & K restricted renal diet
- Dispo: today, pending PT eval
Anticipated Discharge: Today
Subjective/Interval History
-
Date of Service: May 17, 2025
Feeling well this am, no complaints. No SOB or CP. No pain at PPM site. Bowel cramping improved. Slightly congested still.
Objective Data
-
Labs:
Laboratory Results
05/17/25
03:44
WBC 7.0
Hgb 9.4 L
Hct 28.0 L
Plt Count 231
Sodium 131 L
Potassium 4.2
Chloride 96 L
Carbon Dioxide 24
BUN 36 H
Creatinine 5.8 H*
Glucose 92
Calcium 8.4
Total Bilirubin 1.3
AST 18
ALT 16
Alkaline Phosphatase 212 H
Vital Signs:
Vital Signs
Temp Pulse Resp BP Pulse Ox
98.6 F 60 16 124/50 97
05/17/25 03:33 05/17/25 04:00 05/17/25 03:33 05/17/25 03:32 05/17/25 03:33
I&O
05/16/25 05/17/25 05/18/25
06:59 06:59 06:59
Intake Total 40 / 40 540 / 540
Balance 40 / 40 540 / 540
Review of Systems
-
History Source: Patient
Constitutional: Reports No Symptoms
EENT: Reports Runny Nose
Respiratory: Reports No Symptoms
Cardiac: Reports No Symptoms
Abdomen/GI: Reports No Symptoms
Musculoskeletal: Reports No Symptoms
Skin: Reports No Symptoms
Neuro: Reports No Symptoms
Physical Exam
-
General: Well Developed, Well Nourished and No Apparent Distress
HEENT: Normocephalic and Atraumatic
Respiratory: Clear to Auscultation and Non Labored Respirations
Cardiac: Regular Rhythm and Other (PICC line in place; permanent pacer in place with clean bandaging overlying; IJ HD cath)
GI: Soft, Nontender and Nondistended
Musculoskeletal: Other (Chronic venous static lower extremity edema bilaterally with woody skin changes and erythema)
Skin: Rash (See description above regarding bilateral lower extremities, bandaging in place; patient also with some residual dusky vasculitic macules on bilateral anterior lower extremities)
Neuro: Awake, Alert and Oriented
Psych: Anxious
Data Reviewed
-
Total Time Spent with Patient (in minutes): 10
Critical Care Time (in minutes): 35
Labs: Labs Reviewed by me
[2025-05-17] MEDS: RENVELA 2400 MG PO (08:18)
[2025-05-17] MEDS: MUCINEX 600 MG PO (08:18)
[2025-05-17] MEDS: DESENEX/MITRAZOL/ZEASORB 1 APPLIC TOPICAL (08:19)
[2025-05-17] MEDS: HEPARIN 5000 UNITS SC (08:19)
[2025-05-17 09:08] VITALS: BP 130/68
[2025-05-17 10:12] VITALS: PULSE 60; O2SAT 99
--- NOTE | 2025-05-17 10:47 | PTCARENOTE ---
Assumed care at 0800. Patient out of bed in chair. Left chest wall dressing CDI with immobilizer. V-paced underlying a-fib, trace lower leg edema, weak PP, murmur. Dressing changed to right 3rd toe, no drainage, healing. Black healing scabs on legs,
barrier ointment applied. MASD to scarum, anti-fungal powder and barrier creams applied. Right CW dialysis catheter CDI. Right upper extremity single lumen PICC CDI. Comfortable in chair with chair cushion,call velázquez in reach
--- NOTE | 2025-05-17 11:24 | W.PN.ID1 ---
Date of Service
Date of Service: May 17, 2025
Today's Communication
Continue Daptomycin.
See below.
Assessment / Plan
# Complete AVB/bradycardia s/p temporary venous pacer placement 05/13/25
. 05/16 s/p permanent PPM placement
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
. TTE here moderate aortic regurgitation
. 05/14 BRENDAN: Thickened trileaflet aortic valve there is a mobile echodensity seen on the ventricular side of the valve which appears to measure up to 6 mm raising concern for vegetation. Mild to moderate aortic regurgitation.
# Recent R 3rd toe osteomyelitis status post partial bone resection at [facility] 04/21/25, cx Corynebacterium. On Daptomycin till 06/01/24
# SANDY-> ESRD on HD since 03/2025 at [facility]. Renal bx 'infectious glomerulonephritis'.
Possibly due to Vancomycin +/- Zosyn vs embolic
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
- Blood cx's, neg
- While in hospital, Continue Daptomycin 1250 mg q48 till 06/01/24. CK normal
For outpatient, transition to Daptomycin 1,250mg/1,250mg/1500mg M/W/F after dialysis via PICC through 06/01/24.
- Follow weekly CK, CBC, CMP while on Daptomycin.
- Infusion sheet submitted to [facility].
- Can follow-up with [facility] ID
# Other PMHX
COPD
Hypertension
Paroxysmal atrial fibrillation
Dyslipidemia
Superior mesenteric artery stenosis
Venous insufficiency
Sleep apnea
Testicular torsion repair as a teenager
Chief Complaint
-: Other (heart block, toe ostoe, IE)
Subjective / Review of Systems
Feels well.
Vital Signs / Physical Exam
Vital Signs
Vital Signs
Temp Pulse Resp BP Pulse Ox
97.4 F 60 18 124/50 98
05/17/25 09:11 05/17/25 04:00 05/17/25 09:11 05/17/25 03:32 05/17/25 09:11
Physical Exam
Constitutional: No Acute Distress and Comfortable
Cardiovascular: Regular Rate, S1/S2 and Other (LCW PPM site dressing dry)
Pulmonary: Clear
Gastrointestinal: Soft, Non Tender, Non Distended and Normal Bowel Sounds
Genito-Urinary: Negative CVA Tenderness
Extremities: Edema (BLE) and Venous Insufficiency
Wound: Other (right planter callus with tiny wound clean, right third toe no deep wounds)
Neurological: AO x 3
Lines: PICC (RUE intact), HD Cath (RCW no erythema) and Other (RIJ temp venous pacer intact)
Objective Data
Lab Data
Lab Results
05/17/25 03:44
05/17/25 03:44
PT 25.5 Sec (11.4-14.6) H 05/13/25 15:33
PT Cancelled 05/13/25 15:33
INR 2.30 05/13/25 15:33
INR Cancelled 05/13/25 15:33
APTT 41.0 Sec (23.4-35.0) H 05/13/25 15:33
Estimated Creat Clear 20 ml/min 05/17/25 03:44
Lactic Acid Cancelled 05/13/25 19:29
Total Bilirubin 1.3 mg/dl (0.2-1.3) 05/17/25 03:44
AST 18 U/L (17-59) 05/17/25 03:44
ALT 16 U/L (0-50) 05/17/25 03:44
Alkaline Phosphatase 212 U/L (38-126) H 05/17/25 03:44
Most recent labs reviewed.
Micro Results:
05/13/25 12:11 Blood Culture - Preliminary
Blood/Venous No Growth in 72 hours- Final report to follow
05/13/25 12:02 Blood Culture - Preliminary
Blood/Venous No Growth in 72 hours- Final report to follow
--- NOTE | 2025-05-17 11:27 | W.PN.NEPH.PH ---
Today's Communication / Plan
-
dc planning
Assessment/Plan
-
Assessment
Aortic valve vegetation
Bradycardia status post pacemaker
SANDY on dialysis
Postinfectious glomerulonephritis
Hyperkalemia
Hyponatremia
Anemia
Plan
Continue MWF HD
daptomycin needs to be given at home by patient/ after HD (HD unit do not stock dapto and will not infuse abx brought in by patient typically)
dc planning
-
-
Date of Service: May 17, 2025
CC / HPI / ROS
-
Chief Complaint:
Bradycardia
History of Present Illness:
SANDY on dialysis
daptomycin for IE
tolerated HD yesterday
s/p PPM 05/16
Review of Systems:
No chest pain or shortness of breath
Labs
-
Labs:
WBC 7.0 10^3/uL (4.8-10.8) 05/17/25 03:44
RBC 3.02 10^6/uL (4.70-6.10) L 05/17/25 03:44
Hgb 9.4 g/dL (13.0-18.0) L 05/17/25 03:44
Hct 28.0 % (39.0-52.0) L 05/17/25 03:44
Plt Count 231 10^3/uL (130-400) 05/17/25 03:44
Sodium 131 mmol/L (135-145) L 05/17/25 03:44
Potassium 4.2 mmol/L (3.5-5.1) 05/17/25 03:44
Chloride 96 mmol/L (98-107) L 05/17/25 03:44
Carbon Dioxide 24 mmol/L (22-30) 05/17/25 03:44
BUN 36 mg/dl (9-20) H 05/17/25 03:44
Creatinine 5.8 mg/dL (0.7-1.3) H* 05/17/25 03:44
eGFR 10.78 05/17/25 03:44
Glucose 92 mg/dl (70-99) 05/17/25 03:44
Calcium 8.4 mg/dl (8.4-10.2) 05/17/25 03:44
Albumin 3.0 g/dl (3.5-5.0) L 05/17/25 03:44
Physical Exam
-
Vital Signs:
Vital Signs
Temp Pulse Resp BP Pulse Ox
97.4 F 60 18 124/50 98
05/17/25 09:11 05/17/25 04:00 05/17/25 09:11 05/17/25 03:32 05/17/25 09:11
Cardiovascular:: Regular rate and rhythm
Respiratory:: Bilateral: Coarse
Lung Excursion:: Normal
Abdomen:: Nontender and Soft
Bowel Sounds:: Normal
Extremity Edema:: +2: Bilateral:
[2025-05-17 12:00] VITALS: BP 130/81
--- NOTE | 2025-05-17 12:09 | W.DCSUMMARY ---
Addendum entered and electronically signed by Dinah Kenyon MD 05/17/25 15:46:
Read, reviewed, and agree. See same day progress note for additional details. Time spent coordinating care, DC planning, review of DC plan of care with resident, transition of care, review of records in EMR, med rec, consults, notes, d/w
consultants, nursing, family, and CM = 40 minutes
CLARIFICATION: antibiotics to continue through 06/01/25
Original Note:
Discharge Summary
Discharge Data
Date of Admission: 05/13/25
Date of Discharge: 05/17/25
-
Pending Results: No
Hospital Course
Discharging Physician : Dinah Kenyon MD ; Angelica Stoner MD
Disposition : home with VN
Primary care physician : unknown
Principal Discharge diagnosis : symptomatic bradycardia s/p PPM; bacterial endocarditis; renal failure on HD
Chronic Discharge diagnosis : hx R toe osteomyelitis, NAHUM, chronic venous stasis, cigarette use
Hospital Course :
54-year-old M with a history of paroxysmal A-fib (on Eliquis), T2DM, essential hypertension, ongoing cigarette use, renal failure on HD (as of 3 weeks ago, 2/2 vancomycin toxicity vs. infectious/embolic), and recent admission to [facility] (roughly 3 weeks prior) for right foot osteomyelitis, at which point he was found to have endocarditis, who presented on 05/13 following episode of LOC/unresponsiveness x3 while sitting at home.
Per EMS, they were called after patient had episode(s) of LOC at home. In the field, was found to be in complete AV block and was given atropine along with transcutaneous pacing. In the ED, EKG demonstrated junctional bradycardia, RBBB; was
hypotensive with systolic pressure in the 90s, HR dropping to the 30s. Patient was given additional atropine and started on a dopamine drip, and temporary pacemaker was placed emergently in the ED. Patient was admitted to the CVICU/IVU, and
monitored post-procedure. Patient's atenolol was held, given that the etiology of his heart block was thought to be partially due to atenolol toxicity - it is renally cleared, and patient is in renal failure on HD. Of note, patient remained
asymptomatic throughout his inpatient stay�continued to deny any chest pain, shortness of breath, palpitations. Patient's hypotension resolved following temporary pacemaker placement, and he required no additional pressors. However, after
monitoring patient after HD and off atenolol, patient remained bradycardic. On 05/16, cardiology moved forward with permanent pacemaker placement. Procedure was uneventful, and patient was recovering well on 05/17, with stable HR and no symptoms.
Patient was started on 25 mg daily of metoprolol succinate following PPM placement, which he was instructed to continue outpatient.
Patient continued to receive IV daptomycin for his endocarditis and healing right toe osteomyelitis. He received IV daptomycin 1250 mg every 48 hours while inpatient. Per infectious disease consult, planned to transition to daptomycin
1,250mg/1,250mg/1500mg // after dialysis via PICC through 06/01/24, to align with HD schedule. Patient received hemodialysis MWF while inpatient. TTE and BRENDAN while inpatient both confirmed presence of vegetation on aortic valve, consistent with
patient's known infectious endocarditis. He was followed closely by the wound care team for management of his healing right foot ulcer, which demonstrated no acute changes. CK was monitored while on daptomycin, which remained within normal limits.
Patient remained afebrile throughout admission. He was discharged home with visiting nurse on 05/17.
Important imaging findings :
05/13 TTE:
1. Known aortic valve endocarditis.
2. The left ventricle is mildly dilated. Normal LV systolic function.
3. The aortic valve is abnormal. I suspect that there is a vegetation. There is moderate aortic regurgitation.
4. The mitral valve is thickened. No definite vegetation is seen. Mild to moderate mitral regurgitation.
5. No prior echocardiogram available for comparison. The medical records commented on known aortic valve vegetation but without significant aortic regurgitation.
05/14 BRENDAN:
1. Normal left ventricular systolic function.
2. Estimate ejection fraction 55 to 60%.
3. Thickened trileaflet aortic valve with mobile echodensity as described below. Overall appearance is consistent with vegetation.
4. Mild to moderate aortic regurgitation.
5. Moderate mitral regurgitation.
6. Mild to moderate tricuspid regurgitation.
Procedure findings :
05/13:
PROCEDURE DESCRIPTION: Ultrasound-guided vascular access was obtained in the right internal jugular vein and a 6 [place] sheath placed. Under fluoroscopic guidance, a 6 [place] pacing wire was advanced to the RV apical septum with location confirmed
on [place] projection. Pacing was initiated with capture threshold down to 1 mA. The pacemaker was set to an output of 10 mA and rate of 60 bpm and secured in place with suture and Tegaderm. Patient tolerated the procedure well and was taken to the
CVICU. Of note, the patient's potassium resulted at 6.4 immediately prior to the procedure so 1 g of calcium gluconate was given.
CONCLUSION: Successful placement of a temporary venous pacemaker from the right internal jugular vein.
05/16:
Permanent biventricular pacemaker placed
Discharge Plan
-
Patient Disposition: Home with Home Care
Discharge Diagnosis/Procedures: Pacemaker implant 05/16
Condition: Good
Diet: Low Sodium and Restrict fluids to 48 oz
Activity: As tolerated
Driving Restrictions: No driving for 1 week
Bathing Restrictions: OK to Shower
Other Services: VN
Activity Restrictions/Additional Instructions:
Wound Care Instructions
R toe/foot: Betadine and dry dressing change q other day until further orders from Braid Pattern Setter.
moisturize legs daily with mineral oil
increase protein in diet for wound healing
Follow up with Braid Pattern Setter
Stand Alone Forms: DC Inst - Implanted Device
Referrals:
Vani Melvin MD [Active, Cardiology] - 05/28/25 9:20 am
Referral Note: Incision check appointment
Additional Discharge Medication Instructions: START taking metoprolol succinate 25mg daily
STOP taking atenolol
CONTINUE/START taking daptomycin 1,250mg Monday, 1,250mg Monday, and 1,500mg Monday after dialysis via PICC through 06/01/24
Please follow up with your clutch assembler on 05/28 at 9:20am (Dr. Melvin)
Prescriptions:
New
metoprolol succinate 25 mg tablet extended release 24 hr
25 mg PO DAILY 60 Days Qty: 60 0RF
Continued
furosemide [Lasix] 20 mg Tablet
20 mg PO DAILY
sevelamer carbonate 800 mg Tablet
2,400 mg PO AC
Eliquis 5 mg Tablet
5 mg PO BID
potassium chloride 20 mEq Tablet Extended Release
20 meq PO DAILY
vitamin B complex-folic acid [B Complex 1 (with folic acid)] 0.4 mg Tablet
1 tab PO DAILY
Changed
daptomycin 350 mg Recon Soln
1,250 mg IV Q48H Qty: 10 0RF
Rx Instructions:
Daptomycin 1,250mg/1,250mg/1500mg M/W/F after dialysis via PICC through 06/01/24
Discontinued
atenolol 25 mg Tablet
25 mg PO DAILY
Discharge Orders:
Discharge Patient (As Directed); Ordered 05/17/25
Ordered By: Angelica Stoner
Care Plan Goals
Care Plan Goals:
Problem: Readiness for enhanced knowledge related to diagnosis and treatment plan
Goal: Understand your diagnosis and treatment plan needs, including medications if applicable.
Instructions: Know your diagnosis, underlying causes and treatment plan options, including medications if applicable. Consult with your health care team to learn about your diagnosis and treatment plan, including medications if applicable.
Discharge Date and Time
Discharge Date/Time: 05/17/25 14:14
Print Language: BOTSWANAN
[2025-05-17] MEDS: HYDROPHOR 1 APPLIC TOPICAL (12:11)
--- NOTE | 2025-05-17 12:54 | CM ---
pt for dc today, called [facility]- they confirmed pt can come monday at his usual time 530am- Ann/ to fax documents requested.
called [facility]- confirmed services will resume and pt to get iv antibx delivered on monday/ they will resume their VN to maintain the PICC- script and documentation faxed. called , confirmed above and both pt and agreeable to this plan.
--- NOTE | 2025-05-17 14:03 | PTCARENOTE ---
Patient discharged to home. All home care services arranged by CM at discharge. Instructions reviewed with patient and spouse. They verbalized understanding. IV and telemetry removed. Escorted to main lobby in a wheelchair
== END 2025-05-17 14:14 | disposition home or self-care (01) | DRG 242 ==
LOC: IVU 13:26
PROVIDERS: Internal Medicine Cardiovascular Disease; Specialist; Student in an Organized Health Care Education/Training Program; ADMITTING PHYSICIAN Hospitalist; ATTENDING PHYSICIAN Internal Medicine; CONSULT PHYSICIAN Internal Medicine; CONSULT PHYSICIAN Internal Medicine Infectious Disease; CONSULT PHYSICIAN Specialist; EMERGENCY PHYSICIAN Student in an Organized Health Care Education/Training Program
PROC: 5A1223Z Performance of Cardiac Pacing, Continuous (ICD-10-PCS; 2025-05-13)
PROC: 5A09357 Assistance with Respiratory Ventilation, Less than 24 Consecutive Hours, Continuous Positive Airway Pressure (ICD-10-PCS; 2025-05-13)
PROC: 5A1D70Z Performance of Urinary Filtration, Intermittent, Less than 6 Hours Per Day (ICD-10-PCS; 2025-05-13)
PROC: B24BZZ4 Ultrasonography of Heart with Aorta, Transesophageal (ICD-10-PCS; 2025-05-14)
PROC: 3E0102A Introduction of Anti-Infective Envelope into Subcutaneous Tissue, Open Approach (ICD-10-PCS; 2025-05-16)
PROC: 02H63JZ Insertion of Pacemaker Lead into Right Atrium, Percutaneous Approach (ICD-10-PCS; 2025-05-16)
PROC: 0JH606Z Insertion of Pacemaker, Dual Chamber into Chest Subcutaneous Tissue and Fascia, Open Approach (ICD-10-PCS; 2025-05-16)
PROC: 02HK3JZ Insertion of Pacemaker Lead into Right Ventricle, Percutaneous Approach (ICD-10-PCS; 2025-05-16)
DX: I44.2 Atrioventricular block, complete (principal); N18.6 End stage renal disease; K55.1 Chronic vascular disorders of intestine; M86.9 Osteomyelitis, unspecified; N17.9 Acute kidney failure, unspecified; E87.1 Hypo-osmolality and hyponatremia; I12.0 Hypertensive chronic kidney disease with stage 5 chronic kidney disease or end stage renal disease; G47.33 Obstructive sleep apnea (adult) (pediatric); I45.10 Unspecified right bundle-branch block; I08.3 Combined rheumatic disorders of mitral, aortic and tricuspid valves; I48.0 Paroxysmal atrial fibrillation; Z79.01 Long term (current) use of anticoagulants; E87.5 Hyperkalemia; J44.9 Chronic obstructive pulmonary disease, unspecified; Z79.899 Other long term (current) drug therapy; Z82.49 Family history of ischemic heart disease and other diseases of the circulatory system; Z99.2 Dependence on renal dialysis; D64.9 Anemia, unspecified; E11.22 Type 2 diabetes mellitus with diabetic chronic kidney disease; E11.621 Type 2 diabetes mellitus with foot ulcer; E11.69 Type 2 diabetes mellitus with other specified complication; E78.00 Pure hypercholesterolemia, unspecified; F17.210 Nicotine dependence, cigarettes, uncomplicated; I87.2 Venous insufficiency (chronic) (peripheral); L97.519 Non-pressure chronic ulcer of other part of right foot with unspecified severity; N14.19 Nephropathy induced by other drugs, medicaments and biological substances; T36.8X5A Adverse effect of other systemic antibiotics, initial encounter
CPT/HCPCS: 33208; 33210; 71045; 80048; 80053; 82550; 82962; 83605; 83735; 84443; 85025; 85610; 85730; 87040; 93005; 93306; 93312; 93320; 93325; 94660; 96365; 96375; 97163; 99152; 99153; 99291; 99406; C1769; C1785; C1894; C1898; G0257; J0878; J1250; J1610; P9047; Q5106